=== PATIENT | male | born 1965 | race Caucasian/White ===

== ENCOUNTER 2021-06-24 15:59 | Inpatient (IN) | payer OTHER ==
[2021-06-24] MEDS ORDERED: ASPIRIN 81 MG PO STA (16:22)
[2021-06-24] MEDS ORDERED: IPRATROPIUM-ALBUTEROL 3 ML NEB INHALATION STA ×2 (16:23→18:11)
[2021-06-24] MEDS ORDERED: methylPREDNISolone SOD SUCCI 125 MG/2 ML VIAL IV STA (16:23)
[2021-06-24] MEDS ORDERED: MAGNESIUM SULFATE-D5W PMX 1 GM in DEXTROSE/WATER 1 100ML.BAG IVPB ONE (16:25)
[2021-06-24 16:38] LABS: Basophils # (A) 0.1 k/uL (0-0.2); Basophils % (A) 1 %; Eosinophils # (A) 0.2 k/uL (0-0.7); Eosinophils % (A) 3 %; HCT 52.7 % (39.0-53.0); HGB 17.8 gm/dL (13.0-17.5); Lymphocytes # (A) 2.5 k/uL (1.0-4.8); Lymphocytes % (A) 31 %; MCH 33.6 pg (25.0-35.0); MCHC 33.8 g/dL (31.0-37.0); MCV 99.6 fL (80.0-100.0); Macrocytosis Slight; Mean Platelet Volume 7.2; Monocytes # (A) 0.6 k/uL (0-1.0); Monocytes % (A) 8 %; Neutrophils # (A) 4.6 k/uL (1.3-7.7); Neutrophils % (A) 56 %; Platelet Count 305 k/uL (150-450); RBC 5.29 m/uL (4.30-5.90); RDW 14.2 % (11.5-15.5); WBC 8.2 k/uL (3.8-10.6)
[2021-06-24 16:47] LABS: INR 0.9 (<1.2); Partial Thromboplastin Time 22.7 sec (22.0-30.0); Prothrombin Time 9.7 sec (9.0-12.0)
--- NOTE | 2021-06-24 16:47 | ED ---
General Adult HPI - General Chief complaint: Chest Pain Stated complaint: Chest pain Time Seen by Provider: 06/24/21 16:05 Source: patient, RN notes reviewed, old records reviewed Mode of arrival: ambulatory Limitations: no limitations - History of Present Illness Initial comments: Patient is a 55-year-old male with past medical history remarkable for chronic tobacco use, prior [place], prior history of TIAs who presents emergency Department complaining of chest tightness with radiation to the left shoulder and neck since 8 PM last night. No known palliative or provacative factors. Mildly improved since yesterday. He also describes subjective weakness in the left arm and mild subjective numbness in the left arm. This all started at 8 PM last night. Patient presented to the emergency department at 4 PM the next day (today). Last known well was 8 PM last night. He is describing subjective mild left upper extremity weakness and numbness since 8 PM last night with the chest discomfort. He describes it as a tightness sensation of both sides of his chest. States he does smoke tobacco. He states mild shortness of breath. Denies any history of COPD. Denies any abdominal pain, nausea, vomiting. Denies any urinary complaints. Denies any lightheadedness or difficulty with vision. He is able to ambulate without difficulty. He has no other acute complaints at this time. States he has no residual deficits from prior TIAs. Denies any fevers, chills, sick contacts. Patient presents emergency department for evaluation. - Related Data Home Medications Medication Instructions Recorded Confirmed No Known Home Medications 06/24/21 06/24/21 Allergies Allergy/AdvReac Type Severity Reaction Status Date / Time No Known Allergies Allergy Verified 06/24/21 16:58 Review of Systems ROS Statement: Those systems with pertinent positive or pertinent negative responses have been documented in the HPI. Review of Systems: CONST: Denies fever EYES: Denies blurry vision ENT: Denies nasal congestion C/V: Endorse chest pain RESP: Endorses shortness breath GI: Denies abdominal pain : Denies dysuria SKIN: Denies rash. MSK: Denies joint pain. NEURO: Endorses left upper extremity weakness ROS Other: All systems not noted in ROS Statement are negative. Past Medical History Past Medical History: Cancer, Myocardial Infarction ([place]) Additional Past Medical History / Comment(s): TIA x 3 Past Surgical History: Back Surgery, Joint Replacement, Orthopedic Surgery Smoking Status: Current every day smoker Past Alcohol Use History: Daily Past Drug Use History: Marijuana General Exam - General Exam Comments Initial Comments: General: Appears in no acute distress. HEAD: Normal with no signs of head trauma. EYES: PERRLA, EOMI, conjunctiva normal, no discharge. Pupils are 3 mm and equal bilaterally. ENT: Hearing grossly intact, normal oropharynx. RESPIRATORY: Patient has mildly reduced breath sounds bilaterally with mild end expiratory wheezing in bilateral lung montoya. No tachypnea or increased work of breathing. C/V: Regular rate and rhythm. S1 and S2 auscultated, no edema, peripheral pulses 2+ and intact throughout. peripheral pulses are equal 4 extremities. ABD: Abd is soft, nontender, nondistended EXT: Normal range of motion, no obvious deformity SKIN: No rashes or lesions observed on exposed skin. NEURO: Alert and oriented 4. Cranial nerves II through XII are intact. Cerebellar function is intact as evident by normal finger to nose testing and [id number] testing. NIH stroke scale is 2, 1 for left upper extremity weakness and 1 for left lower extremity mild sensory loss. Last known well was 8 PM last night. Symptoms have remained unchanged since then. Limitations: no limitations Course Vital Signs 06/24/21 06/24/21 06/24/21 16:02 17:31 17:37 Temperature 98.1 F Pulse Rate 102 H 72 73 Respiratory 18 18 18 Rate Blood Pressure 116/75 O2 Sat by Pulse 94 L Oximetry 06/24/21 06/24/21 06/24/21 17:42 19:07 19:25 Temperature Pulse Rate 66 77 75 Respiratory 17 18 18 Rate Blood Pressure 143/79 154/87 O2 Sat by Pulse 95 96 Oximetry Medical Decision Making - Medical Decision Making Based on the patient's presentation and physical exam, I'm concerned for possible COPD exacerbation for his current symptoms versus possible ACS for his chest pain. Patient also has an NIH stroke scale of 2 with left upper extremity findings but last known normal was 8 PM last night which is 20 hours ago. He is outside the TPA window and stroke activation window. However we will obtain CT brain without contrast as well as CTAs of the brain and neck. Patiently connected to continuous cardiac monitoring was here in the department. Basic laboratory studies as well as troponin, EKG, chest x-ray will also be obtained. We'll hold off and given aspirin at this time until the CTs are completed. Patient also appears to have a mild COPD exacerbation and will receive IV solu Medrol, magnesium, as well as DuoNeb treatments. Patient was in agreement this plan. Patient's EKG was negative for acute ischemia.Patient's laboratory studies were remarkable for a negative troponin of 0.012. AST and ALT are minimally elevated. COVID-19 swab was negative. Remainder of his labs are unremarkable. Patient's chest x-ray reveals no acute cardiopulmonary process. Patient's CT head and CT angiogram reveals a possible cortical hypodensity in the left occipital lobe which may be suggestive of an acute infarct. CT angiogram was negative otherwise. On reevaluation, did explain to the patient that it does appear that he may have a possible acute infarct of the brain. However his last known well was last night which is 20 hours ago and there is no acute intervention at this time with a negative CT angiogram. Patient does have resolved weakness and sensory deficits of the left arm at this time. NIH stroke scale at this time is 0. Patient will therefore be provided with a dose of aspirin here in the emergency department 325 mg. Informed her of the results of his negative cardiac workup. He states this chest tightness is improved following treatment of his COPD, however he says end expiratory wheezing and therefore we will provide him with multiple breathing treatments as well as Q six-hour Solu-Medrol injections. Patient was in agreement this plan. Patient be admitted to the hospital. Did speak with neurology and we'll place a consult. They were in agreement this plan. Consult was placed to Dr. Virk. I spoke with the admitting team, Dr. Barcenas who is in agreement with this plan and accepted the patient. Therefore patient was admitted in serious condition to a telemetry bed. - Lab Data Result diagrams: 06/24/21 16:29 06/24/21 16:29 Lab Results 06/24/21 06/24/21 06/24/21 Range/Units 16:29 16:29 16:29 WBC 8.2 (3.8-10.6) k/uL RBC 5.29 (4.30-5.90) m/uL Hgb 17.8 H (13.0-17.5) gm/dL Hct 52.7 (39.0-53.0) % MCV 99.6 (80.0-100.0) fL MCH 33.6 (25.0-35.0) pg MCHC 33.8 (31.0-37.0) g/dL RDW 14.2 (11.5-15.5) % Plt Count 305 (150-450) k/uL MPV 7.2 Neutrophils % 56 % Lymphocytes % 31 % Monocytes % 8 % Eosinophils % 3 % Basophils % 1 % Neutrophils # 4.6 (1.3-7.7) k/uL Lymphocytes # 2.5 (1.0-4.8) k/uL Monocytes # 0.6 (0-1.0) k/uL Eosinophils # 0.2 (0-0.7) k/uL Basophils # 0.1 (0-0.2) k/uL Macrocytosis Slight PT 9.7 (9.0-12.0) sec INR 0.9 (<1.2) APTT 22.7 (22.0-30.0) sec Sodium 139 (137-145) mmol/L Potassium 4.0 (3.5-5.1) mmol/L Chloride 101 (98-107) mmol/L Carbon Dioxide 22 (22-30) mmol/L Anion Gap 16 mmol/L BUN 8 L (9-20) mg/dL Creatinine 0.77 (0.66-1.25) mg/dL Est GFR (CKD-EPI)AfAm >90 (>60 ml/min/1.73 sqM) Est GFR (CKD-EPI)NonAf >90 (>60 ml/min/1.73 sqM) Glucose 86 (74-99) mg/dL Calcium 9.2 (8.4-10.2) mg/dL Magnesium 1.9 (1.6-2.3) mg/dL Total Bilirubin 0.9 (0.2-1.3) mg/dL AST 74 H (17-59) U/L ALT 55 H (4-49) U/L Alkaline Phosphatase 79 (38-126) U/L Troponin I (0.000-0.034) ng/mL Total Protein 6.9 (6.3-8.2) g/dL Albumin 4.3 (3.5-5.0) g/dL 06/24/21 Range/Units 16:29 WBC (3.8-10.6) k/uL RBC (4.30-5.90) m/uL Hgb (13.0-17.5) gm/dL Hct (39.0-53.0) % MCV (80.0-100.0) fL MCH (25.0-35.0) pg MCHC (31.0-37.0) g/dL RDW (11.5-15.5) % Plt Count (150-450) k/uL MPV Neutrophils % % Lymphocytes % % Monocytes % % Eosinophils % % Basophils % % Neutrophils # (1.3-7.7) k/uL Lymphocytes # (1.0-4.8) k/uL Monocytes # (0-1.0) k/uL Eosinophils # (0-0.7) k/uL Basophils # (0-0.2) k/uL Macrocytosis PT (9.0-12.0) sec INR (<1.2) APTT (22.0-30.0) sec Sodium (137-145) mmol/L Potassium (3.5-5.1) mmol/L Chloride (98-107) mmol/L Carbon Dioxide (22-30) mmol/L Anion Gap mmol/L BUN (9-20) mg/dL Creatinine (0.66-1.25) mg/dL Est GFR (CKD-EPI)AfAm (>60 ml/min/1.73 sqM) Est GFR (CKD-EPI)NonAf (>60 ml/min/1.73 sqM) Glucose (74-99) mg/dL Calcium (8.4-10.2) mg/dL Magnesium (1.6-2.3) mg/dL Total Bilirubin (0.2-1.3) mg/dL AST (17-59) U/L ALT (4-49) U/L Alkaline Phosphatase (38-126) U/L Troponin I <0.012 (0.000-0.034) ng/mL Total Protein (6.3-8.2) g/dL Albumin (3.5-5.0) g/dL - EKG Data -: EKG Interpreted by Me EKG Comments: 12-lead Electrocardiogram Interpretation Note EKG was reviewed and interpreted by myself. 12-lead ECG performed at 1618 is interpreted by me as revealing normal sinus rhythm at a rate of 97 beats per minute. Kake is normal. MT interval is 144 ms, QRS duration is 86 ms, QTc is 457 ms.. There were no ST or T wave abnormalities to suggest myocardial ischemia or injury. R wave progression across the precordium was satisfactory. By my interpretation this EKG is non-diagnostic for acute ischemia. Disposition Clinical Impression: TIA (transient ischemic attack), COPD exacerbation, Tobacco use, Chest pain of unknown etiology Disposition: ADMITTED IP TO THIS HOSP Condition: Serious
[2021-06-24 16:52] LABS: ALT 55 U/L (4-49); AST 74 U/L (17-59); African American GFR (CKD) >90 (>60 ml/min/1.73 sqM); Albumin 4.3 g/dL (3.5-5.0); Alkaline Phosphatase 79 U/L (38-126); Anion Gap 16 mmol/L; Blood Urea Nitrogen 8 mg/dL (9-20); Calcium 9.2 mg/dL (8.4-10.2); Carbon Dioxide 22 mmol/L (22-30); Chloride 101 mmol/L (98-107); Glucose 86 mg/dL (74-99); Magnesium 1.9 mg/dL (1.6-2.3); Non-African American GFR(CKD) >90 (>60 ml/min/1.73 sqM); Sodium 139 mmol/L (137-145); Total Bilirubin 0.9 mg/dL (0.2-1.3); Total Protein 6.9 g/dL (6.3-8.2)
--- NOTE | 2021-06-24 17:56 | CT ---
EXAMINATION TYPE: CT brain wo con DATE OF EXAM: 06/24/2021 COMPARISON: HISTORY: cva CT DLP: 1118.8 mGycm Automated exposure control for dose reduction was used. Images of the brain obtained without contrast. There is some mild cortical hypodensity in the left occipital lobe in the medial aspect that could re late to an acute infarct. There is no mass effect nor midline shift. There is no sign of intracranial hemorrhage. Calvarium is intact. Skull base is intact. There is normal aeration of the mastoid sinus es. IMPRESSION: Hypodensity left occipital lobe could BE an acute infarct.
--- NOTE | 2021-06-24 17:57 | XR ---
EXAMINATION TYPE: XR chest 2V DATE OF EXAM: 06/24/2021 COMPARISON: NONE HISTORY: Weakness Wrist pain TECHNIQUE: 2 views FINDINGS: Heart and mediastinum are normal. Lungs are clear. Diaphragm is normal. Bony thorax appears intact. There are chest leads. IMPRESSION: Normal chest.
--- NOTE | 2021-06-24 18:07 | CT ---
EXAMINATION TYPE: CT angio head neck DATE OF EXAM: 06/24/2021 COMPARISON: None HISTORY: cva CT DLP: 406.4 mGycm Automated exposure control for dose reduction was used. CONTRAST: Performed with IV Contrast, patient injected with 65cc mL of Isovue 370. Images obtained from the aortic arch to the vertex of the brain with IV contrast. There are 3-D post processed images. There is normal branching pattern of the great vessels on the aortic arch. There is arterial flow in both subclavian arteries. There is arterial flow in the common internal and external carotid arteries bilaterally. There is wide patency of the carotid artery bifurcations. There is arterial flow in both vertebral arteries. There is arterial flow in the vertebrobasilar antonia ry system. There is no evidence of carotid or vertebral artery aneurysm or dissection. There is arterial flow in the anterior middle and posterior cerebral arteries. There is no sign of in tracranial aneurysm or neovascularity. There is no mass effect. I see no evidence of hemodynamic sten osis. There is normal enhancement of the venous sinuses. There is some cortical hypodensity left occi pital lobe measuring approximately 3 x 1.5 cm. IMPRESSION: Negative CT angiogram of the brain. Negative CT angiogram of the neck. Cortical hypodensity left occipital lobe without mass effect is suggestive of an acute infarct.
[2021-06-24] MEDS ORDERED: ASPIRIN 325 MG TAB PO STA (18:17)
[2021-06-24] MEDS: IPRATROPIUM-ALBUTEROL 3 ML NEB INHALATION SCH (22:25)
[2021-06-24] MEDS: methylPREDNISolone SOD SUCCI 40 MG/ML 1 ML VIAL IV SCH (23:58)
[2021-06-25] MEDS: IPRATROPIUM-ALBUTEROL 3 ML NEB INHALATION SCH ×6 (00:17→19:11)
[2021-06-25 06:19] LABS: Glucose,Whole Blood 160 mg/dL (75-99)
[2021-06-25] MEDS: methylPREDNISolone SOD SUCCI 40 MG/ML 1 ML VIAL IV SCH ×2 (06:41→11:30)
[2021-06-25] MEDS ORDERED: DOXYCYCLINE 100 MG CAP PO SCH (11:15)
[2021-06-25] MEDS: SODIUM CHLORIDE 0.9% 1,000 ML IV SCH ×3 (11:29→22:02)
[2021-06-25] MEDS: ATORVASTATIN 40 MG TAB PO SCH (11:30)
[2021-06-25 11:56] LABS: Glucose,Whole Blood 194 mg/dL (75-99)
[2021-06-25] MEDS ORDERED: INSULIN ASPART (NovoLOG) 100 UNIT/ML VIAL SQ SCH (12:30)
--- NOTE | 2021-06-25 14:32 | P.CNPUL ---
History of Present Illness Consult date: 06/25/21 Requesting physician: Ej Barcenas Reason for consult: COPD Chief complaint: Left arm weakness, and blurred vision. History of present illness: This is a 55-year-old white male with history of COPD, 15-ufyn-nryr smoking history, however the patient had no active pulmonary symptoms to suggest active COPD. He presented to the emergency room yesterday with an onset of left arm weakness, and blinking of the left eye, blurred vision in the right eye, this happened while he was working in the barn and there was extreme heat in the barn itself. Patient was evaluated in the ER, and he was noted to have abnormal CT of the brain. Raised the possibility of hypodensity in the left occipital lobe possible acute infarct. CT angiography of the head and neck showed cortical hypodensity in the left occipital lobe without mass effect. Again it is suggestive of acute infarct. No other significant findings noted on the CT angiogram of the head and neck. Considering the patient's history of COPD, I was asked to see him on consultation. Patient has no active pulmonary symptoms whatsoever. No cough no wheezing no shortness of breath no chest pain no fever no chills no hemoptysis. Patient is not on any bronchodilators or inhalers at home. Review of Systems Constitutional: Negative HEENT: Negative Pulmonary: Negative Cardiac: Negative GI: Negative Genitourinary: Negative Musculoskeletal: Left arm weakness which has resolved since the patient was admitted to the hospital. Neurologic: As noted in HPI. Psychiatric: Negative Hematologic: Negative Endocrine: Negative Skin: Negative Past Medical History Past Medical History: Cancer, Myocardial Infarction ([place]) Additional Past Medical History / Comment(s): TIA x 3 Last Myocardial Infarction Date:: 2012 History of Any Multi-Drug Resistant Organisms: None Reported Past Surgical History: Back Surgery, Joint Replacement, Orthopedic Surgery Past Anesthesia/Blood Transfusion Reactions: No Reported Reaction Smoking Status: Current every day smoker Past Alcohol Use History: Daily Past Drug Use History: Marijuana - Past Family History Mother Family Medical History: Cancer Father Family Medical History: Congestive Heart Failure (CHF) Medications and Allergies Home Medications Medication Instructions Recorded Confirmed Type No Known Home Medications 06/24/21 06/24/21 History Allergies Allergy/AdvReac Type Severity Reaction Status Date / Time No Known Allergies Allergy Verified 06/24/21 16:58 Physical Exam Vitals: Vital Signs Temp Pulse Pulse Resp BP BP Pulse Ox 06/25/21 11:34 98 F 67 18 138/80 95 06/25/21 11:14 70 06/25/21 11:03 67 06/25/21 07:39 98 F 71 18 145/77 96 06/25/21 03:55 85 06/25/21 03:45 92 06/25/21 03:41 97.8 F 64 18 145/81 96 06/25/21 00:27 71 06/25/21 00:17 74 06/25/21 00:00 97 20 162/81 96 06/24/21 20:44 98.0 F 81 20 93 L 06/24/21 19:25 75 18 06/24/21 19:07 77 18 154/87 96 06/24/21 17:42 66 17 143/79 95 06/24/21 17:37 73 18 06/24/21 17:31 72 18 06/24/21 16:02 98.1 F 102 H 18 116/75 94 L Intake and Output 06/24/21 06/25/21 06/25/21 22:59 06:59 14:59 Intake Total 490 Balance 490 Intake: IV 10 0.9 10 Oral 480 Other: # Voids 1 Weight 75.1 kg 75.1 kg Physical Exam: Revealed a 55-year-old white male in no distress. Very pleasant. Head: Atraumatic, normocephalic. HEENT:[Neck is supple.] [No neck masses.] [No thyromegaly.] [No JVD.] Chest: [Clear throughout, no crackles, no rhonchi, no wheezes.] Cardiac Exam: [Normal S1 and S2, no S3 gallop, no murmur.] Abdomen: [Soft, nontender, no megaly, no rebound, no guarding, normal bowel sounds.] Extremities: [No clubbing, no edema, no cyanosis.] Neurological Exam: [No focal neurologic deficit.] Alert oriented 3. Psychiatric: Normal mood affect and normal mental status examination. Skin: No rashes. Results - Laboratory Findings CBC and BMP: 06/24/21 16:29 06/24/21 16:29 PT/INR, D-dimer PT 9.7 sec (9.0-12.0) 06/24/21 16:29 INR 0.9 (<1.2) 06/24/21 16:29 Abnormal lab findings: Abnormal Labs 06/24/21 06/24/21 06/25/21 16:29 16:29 06:17 Hgb 17.8 H BUN 8 L POC Glucose (mg/dL) 160 H AST 74 H ALT 55 H 06/25/21 11:54 Hgb BUN POC Glucose (mg/dL) 194 H AST ALT - Diagnostic Findings Chest x-ray: image reviewed (As noted in HPI.) Assessment and Plan Assessment: Impression: Acute CVA/TIA, being addressed by neurology on the case. Tobacco dependence syndrome, no clear-cut symptoms of COPD exacerbation. Patient has no active pulmonary symptoms whatsoever during my evaluation. History of previous CVA. Recommendation: Discontinue methylprednisolone. Discontinue doxycycline. Use updrafts as needed. Counseled regarding smoking cessation. Cleared for discharge once the patient has been cleared by neurology on the case. We'll follow on when necessary basis. Time with Patient: Greater than 30
--- NOTE | 2021-06-25 18:13 | P.HPIM ---
History of Present Illness H&P Date: 06/25/21 Chief Complaint: Chest pain 55-year-old male with past medical history remarkable for chronic tobacco use, prior [place], prior history of TIAs who presents emergency Department complaining of chest tightness with radiation to the left shoulder and neck since 8 PM last night. No known palliative or provacative factors. Mildly improved since yesterday. He also describes subjective weakness in the left arm and mild subjective numbness in the left arm. This all started at 8 PM last night. Patient presented to the emergency department at 4 PM the next day (today). Last known well was 8 PM last night. He is describing subjective mild left upper extremity weakness and numbness since 8 PM last night with the chest discomfort. He describes it as a tightness sensation of both sides of his chest. States he does smoke tobacco. He states mild shortness of breath. Denies any history of COPD. Denies any abdominal pain, nausea, vomiting. Denies any urinary complaints. Denies any lightheadedness or difficulty with vision. He is able to ambulate without difficulty. He has no other acute complaints at this time. States he has no residual deficits from prior TIAs. Denies any fevers, chills, sick contacts. Patient presents emergency department for evaluation. Review of Systems REVIEW OF SYSTEMS: CONSTITUTIONAL: No fever, no malaise, no fatigue. HEENT: No recent visual problems or hearing problems. Denied any sore throat. CARDIOVASCULAR: No chest pain, orthopnea, PND, no palpitations, no syncope. PULMONARY: No shortness of breath, no cough, no hemoptysis. GASTROINTESTINAL: No diarrhea, no nausea, no vomiting, no abdominal pain. NEUROLOGICAL: No headaches, no weakness, no numbness. HEMATOLOGICAL: Denies any bleeding or petechiae. GENITOURINARY: Denies any burning micturition, frequency, or urgency. MUSCULOSKELETAL/RHEUMATOLOGICAL: Denies any joint pain, swelling, or any muscle pain. ENDOCRINE: Denies any polyuria or polydipsia. The rest of the 14-point review of systems is negative. Past Medical History Past Medical History: Cancer, Myocardial Infarction ([place]) Additional Past Medical History / Comment(s): TIA x 3 Last Myocardial Infarction Date:: 2012 History of Any Multi-Drug Resistant Organisms: None Reported Past Surgical History: Back Surgery, Joint Replacement, Orthopedic Surgery Past Anesthesia/Blood Transfusion Reactions: No Reported Reaction Smoking Status: Current every day smoker Past Alcohol Use History: Daily Past Drug Use History: Marijuana - Past Family History Mother Family Medical History: Cancer Father Family Medical History: Congestive Heart Failure (CHF) Medications and Allergies Home Medications Medication Instructions Recorded Confirmed Type No Known Home Medications 06/24/21 06/24/21 History Allergies Allergy/AdvReac Type Severity Reaction Status Date / Time No Known Allergies Allergy Verified 06/24/21 16:58 Physical Exam Vitals: Vital Signs Temp Pulse Pulse Resp BP BP Pulse Ox 06/25/21 07:39 98 F 71 18 145/77 96 06/25/21 03:55 85 06/25/21 03:45 92 06/25/21 03:41 97.8 F 64 18 145/81 96 06/25/21 00:27 71 06/25/21 00:17 74 06/25/21 00:00 97 20 162/81 96 06/24/21 20:44 98.0 F 81 20 93 L 06/24/21 19:25 75 18 06/24/21 19:07 77 18 154/87 96 06/24/21 17:42 66 17 143/79 95 06/24/21 17:37 73 18 06/24/21 17:31 72 18 06/24/21 16:02 98.1 F 102 H 18 116/75 94 L Intake and Output 06/24/21 06/25/21 06/25/21 22:59 06:59 14:59 Intake Total 240 Balance 240 Intake: Oral 240 Other: # Voids 1 Weight 75.1 kg 75.1 kg Physical Exam: Revealed a 55-year-old white male in no distress. Very pleasant. Head: Atraumatic, normocephalic. HEENT:[Neck is supple.] [No neck masses.] [No thyromegaly.] [No JVD.] Chest: [Clear throughout, no crackles, no rhonchi, no wheezes.] Cardiac Exam: [Normal S1 and S2, no S3 gallop, no murmur.] Abdomen: [Soft, nontender, no megaly, no rebound, no guarding, normal bowel sounds.] Extremities: [No clubbing, no edema, no cyanosis.] Neurological Exam: [No focal neurologic deficit.] Alert oriented 3. Psychiatric: Normal mood affect and normal mental status examination. Skin: No rashes. Results CBC & Chem 7: 06/24/21 16:29 06/24/21 16:29 Labs: Abnormal Lab Results - Last 24 Hours (Table) 06/24/21 06/24/21 06/25/21 Range/Units 16:29 16:29 06:17 Hgb 17.8 H (13.0-17.5) gm/dL BUN 8 L (9-20) mg/dL POC Glucose (mg/dL) 160 H (75-99) mg/dL AST 74 H (17-59) U/L ALT 55 H (4-49) U/L Thrombosis Risk Factor Assmnt - Choose All That Apply Each Factor Represents 1 point: Acute NM, Age 41-60 years Other Risk Factors: No Other congenital or acquired thrombophilia - If yes, enter type in comment: No Thrombosis Risk Factor Assessment Total Risk Factor Score: 2 Thrombosis Risk Factor Assessment Level: Low Risk Assessment and Plan Assessment: 1. Acute left occipital infarct - CT of the head reveals left occipital infarct; we will start patient on aspirin and high-dose statin therapy in form of Lipitor 40 mg by mouth daily at bedtime; order 2-D echo; CTA head and neck was unremarkable - Check HbA1c, vitamin B12, TSH and lipid profile; we will plan to keep blood glucose less than 180 - Permissive hypertension; treat only if blood pressure is greater than 220/120; start patient on IV fluids in form of normal saline at rate of 1 30 mL an hour - Neurology consulted and recommendations are pending - Consult PT/OT for evaluation and recommendations on discharge planning 2. Chest pain rule out acute coronary syndrome; continue with aspirin and statin therapy; order 2-D echo; consult cardiology for further recommendations 3. Dyspnea possible COPD exacerbation; patient has no diagnosis of COPD; does have long-standing history of cigarette smoking; patient is currently on Solu- Medrol 40 mg IV every 8 hours with DuoNeb nebulizer treatments; patient does not have any clear-cut evidence of COPD; we will consult pulmonary for further re commendations 4. Chronic tobacco use; counseling done on need for smoking cessation DVT prophylaxis; SCDs only due to acute CVA CODE STATUS; full code
[2021-06-25 18:30] LABS: Chol/HDL Ratio 2.26
--- NOTE | 2021-06-25 18:58 | P.CNNES ---
History of Present Illness Consult date: 06/25/21 Reason for Consult: TIA History of Present Illness: The patient is a 55-year-old male who is seen in neurologic consultation on June 25, 2021, via teleneurology. History is obtained from the patient as well as the chart. There appears to be some variation in the patient's history. Patient states that a day prior to his admission to the hospital, he was working in the barn and became very hot. He says he was very hot and overheated. He then developed a headache. Continued to feel hot and overheated and subsequently developed numbness of his left forearm and hand. The patient denies weakness. Patient also denies visual loss. He does report feeling dizzy. He denied difficulty with speech and swallowing. Patient states that his symptoms began approximately 8 PM. He went home and his symptoms lasted all night long. He came into the emergency department day after onset of his symptoms, at approximate 4 PM. The patient reports having similar symptoms like this in the past. During my questioning, the patient denies chest pain and shortness of breath. Review of the emergency department note, the patient reportedly presented with chest tightness, radiating to his neck and left arm with associated shortness of breath. The patient himself feels that he was having the beginnings of a heat stroke. He says he has had them in the past. Past Medical History Past Medical History: Cancer, Myocardial Infarction ([place]) Additional Past Medical History / Comment(s): TIA x 3 Last Myocardial Infarction Date:: 2012 History of Any Multi-Drug Resistant Organisms: None Reported Past Surgical History: Back Surgery, Joint Replacement, Orthopedic Surgery Past Anesthesia/Blood Transfusion Reactions: No Reported Reaction Smoking Status: Current every day smoker Past Alcohol Use History: Daily Past Drug Use History: Marijuana - Past Family History Mother Family Medical History: Cancer Father Family Medical History: Congestive Heart Failure (CHF) Medications and Allergies Home Medications Medication Instructions Recorded Confirmed Type No Known Home Medications 06/24/21 06/24/21 History Allergies Allergy/AdvReac Type Severity Reaction Status Date / Time No Known Allergies Allergy Verified 06/24/21 16:58 Physical Examination - Vital Signs Vital Signs: Vital Signs Temp Pulse Pulse Resp BP BP Pulse Ox 06/25/21 11:34 98 F 67 18 138/80 95 06/25/21 11:14 70 06/25/21 11:03 67 06/25/21 07:39 98 F 71 18 145/77 96 06/25/21 03:55 85 06/25/21 03:45 92 06/25/21 03:41 97.8 F 64 18 145/81 96 06/25/21 00:27 71 06/25/21 00:17 74 06/25/21 00:00 97 20 162/81 96 06/24/21 20:44 98.0 F 81 20 93 L 06/24/21 19:25 75 18 06/24/21 19:07 77 18 154/87 96 06/24/21 17:42 66 17 143/79 95 06/24/21 17:37 73 18 06/24/21 17:31 72 18 06/24/21 16:02 98.1 F 102 H 18 116/75 94 L Intake and Output 06/24/21 06/25/21 06/25/21 22:59 06:59 14:59 Intake Total 250 Balance 250 Intake: IV 10 0.9 10 Oral 240 Other: # Voids 1 Weight 75.1 kg 75.1 kg Gen.: The patient is reclining in the bed. He is well-nourished, well-developed and in no acute distress. He appears older than his stated age. HEENT: Head is atraumatic, normocephalic. Fundus not visualized. There is no scleral icterus. Mucous membranes are moist. Neck: Supple without carotid bruits Heart: Regular rate and rhythm Extremities: Without edema Neurological examination Mental status: The patient is awake, alert and oriented 3. His speech is clear. There is no dysarthria or aphasia. Cranial nerves: Pupils are equal at 3 mm and reactive. Visual montoya are full to confrontation. Extraocular movements are intact. There is no nystagmus. Facial sensation is intact. There is no facial asymmetry. Hearing is grossly intact. Uvula and palate are midline. Shoulder shrug is symmetric. Tongue protrudes midline. Motor: Strength is 5/5 throughout. Coordination: Finger to nose and rapid alternating movements are intact. Deep tendon reflexes: 2+/4+ at the right biceps and bilateral patellar. Left biceps reflex 1+/4+. Tinel's sign is absent at the right wrist. Sensation: Grossly intact to light touch. There is no extinction with double simultaneous stimulation. Results - Laboratory Findings CBC and BMP: 06/24/21 16:29 06/24/21 16:29 Abnormal Lab Findings: Abnormal Labs 06/24/21 06/24/21 06/25/21 16:29 16:29 06:17 Hgb 17.8 H BUN 8 L POC Glucose (mg/dL) 160 H AST 74 H ALT 55 H 06/25/21 11:54 Hgb BUN POC Glucose (mg/dL) 194 H AST ALT Assessment and Plan Assessment: 1. Possible TIA in a patient with previous strokes and stroke risk factors. The location of the patient's symptoms-left forearm and handare unusual for transient ischemic attack. Also to be considered are symptoms of dehydration as patient does appear to be dehydrated, per laboratory evaluation 2. Occipital ischemic infarct per CT scan of brain-the patient has no visual symptoms consistent with this. CT scan is unable to tell us the actual age of the infarct. 3. Reported history of TIAs 4. Reported history of myocardial infarction 5. COPD 6. Tobacco abuse Plan: 1. No further imaging is necessary at this point in time, may consider MRI of the brain as outpatient to further evaluate occipital infarct 2. The patient should be started on aspirin 81 mg daily for stroke prevention 3. Tobacco cessation was discussed with the patient. He was advised that tobacco increases his risk of heart disease and stroke 4. Patient was advised to eat a heart healthy diet/Mediterranean 5. Aerobic exercise was recommended for further stroke prevention 6. Agree with initiation of Lipitor for further stroke prevention 7. Consider outpatient follow-up with neurology Time with Patient: Greater than 30 (spent 40 minutes with the patient to via teleneurology)
[2021-06-25 20:33] LABS: Hemoglobin A1C 5.4 % (4.0-6.0)
[2021-06-25 23:34] VITALS: RESP 16
[2021-06-26] MEDS: IPRATROPIUM-ALBUTEROL 3 ML NEB INHALATION SCH ×3 (00:01→08:31)
[2021-06-26 07:54] VITALS: BP 133/82; PULSE 65; TEMP 98.1
[2021-06-26] MEDS: ATORVASTATIN 40 MG TAB PO SCH (07:56)
[2021-06-26 08:46] LABS: Basophils % (A) 0 %; Eosinophils % (A) 0 %; HCT 47.9 % (39.0-53.0); HGB 16.3 gm/dL (13.0-17.5); Lymphocytes # (A) 1.3 k/uL (1.0-4.8); Lymphocytes % (A) 13 %; MCH 34.3 pg (25.0-35.0); MCHC 33.9 g/dL (31.0-37.0); Macrocytosis Slight; Mean Platelet Volume 8.2; Monocytes # (A) 0.6 k/uL (0-1.0); Monocytes % (A) 6 %; Neutrophils # (A) 8.3 k/uL (1.3-7.7); Neutrophils % (A) 80 %; Platelet Count 216 k/uL (150-450); RBC 4.74 m/uL (4.30-5.90); RDW 13.6 % (11.5-15.5); WBC 10.3 k/uL (3.8-10.6)
[2021-06-26 08:53] LABS: African American GFR (CKD) >90 (>60 ml/min/1.73 sqM); Anion Gap 6 mmol/L; Blood Urea Nitrogen 14 mg/dL (9-20); Calcium 9.2 mg/dL (8.4-10.2); Carbon Dioxide 26 mmol/L (22-30); Chloride 102 mmol/L (98-107); Glucose 129 mg/dL (74-99); Non-African American GFR(CKD) >90 (>60 ml/min/1.73 sqM); Potassium 4.2 mmol/L (3.5-5.1); Sodium 134 mmol/L (137-145)
[2021-06-26] MEDS ORDERED: ASPIRIN 81 MG PO SCH (09:00)
[2021-06-26] MEDS ORDERED: NITROGLYCERIN SL TABS 0.4 MG TAB SUBLINGUAL PRN (10:27)
[2021-06-26] MEDS ORDERED: METOPROLOL TARTRATE 12.5 MG TAB PO SCH (10:30)
[2021-06-26] MEDS: SODIUM CHLORIDE 0.9% 1,000 ML IV SCH (11:37)
--- NOTE | 2021-06-26 13:45 | P.CRDCN ---
History of Present Illness History of present illness: HISTORY OF PRESENT ILLNESS: This is a 55-year-old male male with a past medical history significant for nicotine dependence and coronary artery disease with previous stenting in [place]. 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 Patient examined at the bedside. Patient states he recently moved to [place] and was previously living in [place]. He reports having a stent placed 7 or 8 years ago. Patient is unclear of the exact details. He states he has had no issues since his stent was placed. He believes he had a stress test completed a few years ago but nothing recently. Patient reports he was having a lot of jaw pain when he required his stents. Patient states he was working on the barn and he began to feel really hot. He states he felt short of breath and stated "I felt like my head was going to explode". He also reports feeling short of breath. Patient states he had chest tightness during this time to which he attributes to his labored breathing. He currently denies chest pain or pressure. EKG reveals sinus mechanism Chest xray negative for acute process Laboratory data: WBC 10.3. Hemoglobin 16.3. Platelet count 216. Sodium 134. Potassium 4.2. BUN 14. Creatinine 0.67. Troponin negative 2. Current home cardiac medications: None REVIEW OF SYSTEMS: At the time of my exam: CONSTITUTIONAL: Denies fever or chills. HEENT: Denies blurred vision, vision changes, or eye pain. Denies hemoptysis CARDIOVASCULAR: Denies chest pain. Denies orthopnea. Denies PND. Denies palpitations RESPIRATORY: Denies shortness of breath. GASTROINTESTINAL: Denies abdominal pain. Denies nausea or vomiting. HEMATOLOGIC: Denies bleeding disorders. GENITOURINARY: Denies any blood in urine. SKIN: Denies pruitis. Denies rash. PHYSICAL EXAM: VITAL SIGNS: Reviewed. GENERAL: Well-developed in no acute distress. HEENT: Head is normocephalic. Pupils are equal, round. Sclerae anicteric. Mucous membranes of the mouth are moist. Neck supple. No JVD or thyromegaly LUNGS: Respirations even and unlabored. Lungs essentially clear to auscultation bilaterally. HEART: Regular rate and rhythm. S1 and S2 heard. ABDOMEN: Soft. Nondistended. Nontender. EXTREMITIES: Normal range of motion. No clubbing or cyanosis. Peripheral pu lses intact. No lower extremity edema NEUROLOGIC: Awake and alert. Oriented x 3. ASSESSMENT: Acute CVA/TIA Chest pain, troponins negative 2 History of coronary artery disease with previous stenting in [place], per patient Nicotine dependence PLAN: Obtain 2-D echo to assess structure and function Add metoprolol to patient's medication regimen Continue workup per neurology Possible KELVIN and/or stress test after neurology workup Nurse practitioner note has been reviewed by physician. Signing provider agrees with the documented findings, assessment, and plan of care. Past Medical History Past Medical History: Cancer, Myocardial Infarction ([place]) Additional Past Medical History / Comment(s): TIA x 3 Last Myocardial Infarction Date:: 2012 History of Any Multi-Drug Resistant Organisms: None Reported Past Surgical History: Back Surgery, Joint Replacement, Orthopedic Surgery Past Anesthesia/Blood Transfusion Reactions: No Reported Reaction Smoking Status: Current every day smoker Past Alcohol Use History: Daily Past Drug Use History: Marijuana - Past Family History Mother Family Medical History: Cancer Father Family Medical History: Congestive Heart Failure (CHF) Medications and Allergies Home Medications Medication Instructions Recorded Confirmed Type No Known Home Medications 06/24/21 06/24/21 History Allergies Allergy/AdvReac Type Severity Reaction Status Date / Time No Known Allergies Allergy Verified 06/24/21 16:58 Physical Exam Vitals: Vital Signs Temp Pulse Pulse Resp BP Pulse Ox 06/26/21 07:53 98.1 F 65 16 133/82 96 06/26/21 03:36 98.0 F 60 16 129/77 97 06/25/21 23:31 97.9 F 65 16 136/77 96 06/25/21 20:00 98.4 F 65 18 137/78 95 06/25/21 16:06 98.6 F 75 16 131/78 96 06/25/21 11:34 98 F 67 18 138/80 95 06/25/21 11:14 70 06/25/21 11:03 67 Intake and Output 06/25/21 06/26/21 06/26/21 22:59 06:59 14:59 Intake Total 200 240 Balance 200 240 Intake: Oral 200 240 Other: # Voids 3 1 Weight 75 kg Results 06/26/21 07:47 06/26/21 07:47 Lipids 06/24/21 Range/Units 16:29 Triglycerides 80.0 (0.0-149.0) mg/dL Cholesterol 154 (0-200) mg/dL HDL Cholesterol 68.0 H (40.0-60.0) mg/dL Cholesterol/HDL Ratio 2.26 CBC 06/26/21 Range/Units 07:47 WBC 10.3 (3.8-10.6) k/uL RBC 4.74 (4.30-5.90) m/uL Hgb 16.3 (13.0-17.5) gm/dL Hct 47.9 (39.0-53.0) % Plt Count 216 (150-450) k/uL Comprehensive Metabolic Panel 06/26/21 Range/Units 07:47 Sodium 134 L (137-145) mmol/L Potassium 4.2 (3.5-5.1) mmol/L Chloride 102 (98-107) mmol/L Carbon Dioxide 26 (22-30) mmol/L BUN 14 (9-20) mg/dL Creatinine 0.67 (0.66-1.25) mg/dL Glucose 129 H (74-99) mg/dL Calcium 9.2 (8.4-10.2) mg/dL Current Medications Generic Name Dose Route Start Last Admin Trade Name Freq PRN Reason Stop Dose Admin Albuterol/Ipratropium 3 ml 06/24/21 20:00 06/26/21 08:31 Ipratropium-Albuterol 3 Ml Neb INHALATION Not Given Q4HR ROSA Aspirin 81 mg 06/26/21 09:00 06/26/21 07:56 Aspirin 81 Mg PO 81 mg DAILY ROSA Administration Atorvastatin Calcium 40 mg 06/25/21 11:15 06/26/21 07:56 Atorvastatin 40 Mg Tab PO 40 mg DAILY ROSA Administration Sodium Chloride 1,000 mls @ 130 mls/hr 06/25/21 11:30 06/25/21 22:02 Saline 0.9% IV Not Given .[id number] ROSA Intake and Output 06/25/21 06/26/21 06/26/21 22:59 06:59 14:59 Intake Total 200 240 Balance 200 240 Intake: Oral 200 240 Other: # Voids 3 1 Weight 75 kg 06/26/21 07:47 06/26/21 07:47
== END 2021-06-26 11:32 | disposition left against medical advice (07) | DRG 65 ==
LOC: EC 15:59 → 3SCARD 18:28
PROVIDERS: ADMIT Internal Medicine; ATTEND Internal Medicine
DX: I63.9 Cerebral infarction, unspecified (principal); J44.1 Chronic obstructive pulmonary disease with (acute) exacerbation; F17.200 Nicotine dependence, unspecified, uncomplicated; I10 Essential (primary) hypertension; I25.10 Atherosclerotic heart disease of native coronary artery without angina pectoris; I25.2 Old myocardial infarction; R29.702 NIHSS score 2; Z20.822 Contact with and (suspected) exposure to COVID-19; Z82.49 Family history of ischemic heart disease and other diseases of the circulatory system; Z86.73 Personal history of transient ischemic attack (TIA), and cerebral infarction without residual deficits; Z95.5 Presence of coronary angioplasty implant and graft
CPT/HCPCS: 36415; 70450; 70496; 70498; 71046; 80048; 80053; 80061; 82607; 83036; 83735; 84443; 84484; 85025; 85610; 85730; 87635; 93005; 93306; 94640; 96365; 96375; 99285

== ENCOUNTER 2021-07-08 17:55 | Inpatient (IN) | payer OTHER ==
--- NOTE | 2021-07-08 18:22 | ED ---
General Adult HPI - General Chief complaint: Dizziness Stated complaint: Stroke Symptoms Time Seen by Provider: 07/08/21 18:12 Source: patient, EMS, RN notes reviewed Mode of arrival: EMS Limitations: no limitations - History of Present Illness Initial comments: Patient is a pleasant 55-year-old male presenting to the emergency department with concern with dizziness. Patient states he has history of similar symptoms around 3 times previously associated with TIA. Patient is unclear of any specific weakness. Patient does complain of left-sided headache. Onset of symptoms was fairly sudden sometime around 4:30. - Related Data Home Medications Medication Instructions Recorded Confirmed No Known Home Medications 06/24/21 06/24/21 Allergies Allergy/AdvReac Type Severity Reaction Status Date / Time No Known Allergies Allergy Verified 06/24/21 16:58 Review of Systems ROS Statement: Those systems with pertinent positive or pertinent negative responses have been documented in the HPI. ROS Other: All systems not noted in ROS Statement are negative. Constitutional: Denies: fever Eyes: Denies: eye pain ENT: Denies: ear pain Respiratory: Denies: cough Cardiovascular: Denies: chest pain Endocrine: Denies: fatigue Gastrointestinal: Denies: abdominal pain Genitourinary: Denies: dysuria Musculoskeletal: Denies: back pain Skin: Denies: rash Neurological: Reports: as per HPI, headache, vertigo Past Medical History Past Medical History: Cancer, Myocardial Infarction ([place]) Additional Past Medical History / Comment(s): TIA x 3 Last Myocardial Infarction Date:: 2012 History of Any Multi-Drug Resistant Organisms: None Reported Past Surgical History: Back Surgery, Joint Replacement, Orthopedic Surgery Past Anesthesia/Blood Transfusion Reactions: No Reported Reaction Past Psychological History: No Psychological Hx Reported Smoking Status: Current every day smoker Past Alcohol Use History: Daily Past Drug Use History: Marijuana - Past Family History Mother Family Medical History: Cancer Father Family Medical History: Congestive Heart Failure (CHF) General Exam Limitations: no limitations General appearance: alert, in no apparent distress Head exam: Present: normocephalic Eye exam: Present: normal appearance, PERRL, EOMI ENT exam: Present: normal oropharynx Neck exam: Present: normal inspection Respiratory exam: Present: normal lung sounds bilaterally Cardiovascular Exam: Present: regular rate, normal rhythm GI/Abdominal exam: Present: soft. Absent: tenderness Extremities exam: Present: normal inspection Neurological exam: Present: alert, CN II-XII intact (Except for mild right-sided facial droop) Expanded Neurological exam: Present: protecting the airway, other (Right-sided facial droop) Speech: Present: fluid speech Cranial nerves: EOM's Intact: Normal, Facial Sensation: Normal Cerebellar function: Finger to Nose: Abnormal Left Sensory exam: Upper Extremity Light Touch: Normal, Lower Extremity Light Touch: Abnormal Left Motor strength exam: RUE: 5, LUE: 5, RLE: 4, LLE: 3 Eye Response: (4) open spontaneously Motor Response: (6) obeys commands Verbal Response: (5) oriented Psychiatric exam: Present: normal affect, normal mood Skin exam: Present: normal color Course Vital Signs 07/08/21 07/08/21 07/08/21 18:00 18:07 18:20 Temperature 97.4 F L 97.4 F L Pulse Rate 66 66 84 Respiratory 18 18 18 Rate Blood Pressure 146/83 146/83 135/77 O2 Sat by Pulse 97 97 97 Oximetry 07/08/21 07/08/21 18:45 19:01 Temperature 97.2 F L Pulse Rate 74 76 Respiratory 18 18 Rate Blood Pressure 141/82 133/80 O2 Sat by Pulse 95 95 Oximetry - Reevaluation(s) Reevaluation #1: 07/08/21 18:31 Case was discussed with Dr. Mora who feels patient is a candidate for TPA if computed tomography scan is reported as no acute abnormality. 07/08/21 19:24 Case again discussed with Dr. fierro with some concern for sub-acute left occipital stroke and he recommends no TPA secondary to concern for risk of hemorrhage Patient reevaluated and updated. Case also discussed with Dr. Manzano, who will admit hospital call. EKG Findings - EKG Comments: EKG Findings:: Normal sinus rhythm with a rate of 60. ME 146. QRS 94. QT 4:30. QTC 4:30. Normal axis. Normal QRS. No acute ST change. Medical Decision Making - Lab Data Result diagrams: 07/08/21 18:25 07/08/21 18:25 Lab Results 07/08/21 07/08/21 07/08/21 Range/Units 18:25 18:25 18:25 WBC 10.4 (3.8-10.6) k/uL RBC 4.90 (4.30-5.90) m/uL Hgb 16.7 (13.0-17.5) gm/dL Hct 49.8 (39.0-53.0) % MCV 101.5 H (80.0-100.0) fL MCH 34.0 (25.0-35.0) pg MCHC 33.5 (31.0-37.0) g/dL RDW 14.0 (11.5-15.5) % Plt Count 337 (150-450) k/uL MPV 7.5 Neutrophils % 77 % Lymphocytes % 15 % Monocytes % 5 % Eosinophils % 2 % Basophils % 1 % Neutrophils # 8.0 H (1.3-7.7) k/uL Lymphocytes # 1.6 (1.0-4.8) k/uL Monocytes # 0.5 (0-1.0) k/uL Eosinophils # 0.2 (0-0.7) k/uL Basophils # 0.1 (0-0.2) k/uL Macrocytosis Slight PT 10.2 (9.0-12.0) sec INR 0.9 (<1.2) APTT 20.1 L (22.0-30.0) sec Sodium 138 (137-145) mmol/L Potassium 3.8 (3.5-5.1) mmol/L Chloride 105 (98-107) mmol/L Carbon Dioxide 23 (22-30) mmol/L Anion Gap 10 mmol/L BUN 9 (9-20) mg/dL Creatinine 0.87 (0.66-1.25) mg/dL Est GFR (CKD-EPI)AfAm >90 (>60 ml/min/1.73 sqM) Est GFR (CKD-EPI)NonAf >90 (>60 ml/min/1.73 sqM) Glucose 124 H (74-99) mg/dL POC Glucose (mg/dL) (75-99) mg/dL POC Glu Supervisor [place] ID Calcium 9.3 (8.4-10.2) mg/dL Total Bilirubin 0.4 (0.2-1.3) mg/dL AST 28 (17-59) U/L ALT 30 (4-49) U/L Alkaline Phosphatase 82 (38-126) U/L Troponin I (0.000-0.034) ng/mL Total Protein 6.7 (6.3-8.2) g/dL Albumin 4.1 (3.5-5.0) g/dL 07/08/21 07/08/21 Range/Units 18:25 18:46 WBC (3.8-10.6) k/uL RBC (4.30-5.90) m/uL Hgb (13.0-17.5) gm/dL Hct (39.0-53.0) % MCV (80.0-100.0) fL MCH (25.0-35.0) pg MCHC (31.0-37.0) g/dL RDW (11.5-15.5) % Plt Count (150-450) k/uL MPV Neutrophils % % Lymphocytes % % Monocytes % % Eosinophils % % Basophils % % Neutrophils # (1.3-7.7) k/uL Lymphocytes # (1.0-4.8) k/uL Monocytes # (0-1.0) k/uL Eosinophils # (0-0.7) k/uL Basophils # (0-0.2) k/uL Macrocytosis PT (9.0-12.0) sec INR (<1.2) APTT (22.0-30.0) sec Sodium (137-145) mmol/L Potassium (3.5-5.1) mmol/L Chloride (98-107) mmol/L Carbon Dioxide (22-30) mmol/L Anion Gap mmol/L BUN (9-20) mg/dL Creatinine (0.66-1.25) mg/dL Est GFR (CKD-EPI)AfAm (>60 ml/min/1.73 sqM) Est GFR (CKD-EPI)NonAf (>60 ml/min/1.73 sqM) Glucose (74-99) mg/dL POC Glucose (mg/dL) 114 H (75-99) mg/dL POC Glu Supervisor [place] ID Jaclyn, Cordell Calcium (8.4-10.2) mg/dL Total Bilirubin (0.2-1.3) mg/dL AST (17-59) U/L ALT (4-49) U/L Alkaline Phosphatase (38-126) U/L Troponin I <0.012 (0.000-0.034) ng/mL Total Protein (6.3-8.2) g/dL Albumin (3.5-5.0) g/dL - Radiology Data Radiology results: report reviewed (Computed tomography scan of the brain reveals no acute process per radiology as discussed with Dr. Huang) Disposition Clinical Impression: CVA (cerebral vascular accident) Disposition: ADMITTED IP TO THIS HOSP Is patient prescribed a controlled substance at d/c from ED?: No Referrals: None,Stated [Primary Care Provider] - 1-2 days Decision Time: 19:28
[2021-07-08 18:31] LABS: Basophils # (A) 0.1 k/uL (0-0.2); Basophils % (A) 1 %; Eosinophils # (A) 0.2 k/uL (0-0.7); Eosinophils % (A) 2 %; HCT 49.8 % (39.0-53.0); HGB 16.7 gm/dL (13.0-17.5); Lymphocytes # (A) 1.6 k/uL (1.0-4.8); Lymphocytes % (A) 15 %; MCHC 33.5 g/dL (31.0-37.0); MCV 101.5 fL (80.0-100.0); Macrocytosis Slight; Mean Platelet Volume 7.5; Monocytes # (A) 0.5 k/uL (0-1.0); Monocytes % (A) 5 %; Neutrophils % (A) 77 %; Platelet Count 337 k/uL (150-450); WBC 10.4 k/uL (3.8-10.6)
[2021-07-08 18:45] LABS: ALT 30 U/L (4-49); AST 28 U/L (17-59); African American GFR (CKD) >90 (>60 ml/min/1.73 sqM); Albumin 4.1 g/dL (3.5-5.0); Alkaline Phosphatase 82 U/L (38-126); Anion Gap 10 mmol/L; Blood Urea Nitrogen 9 mg/dL (9-20); Calcium 9.3 mg/dL (8.4-10.2); Carbon Dioxide 23 mmol/L (22-30); Chloride 105 mmol/L (98-107); Glucose 124 mg/dL (74-99); Non-African American GFR(CKD) >90 (>60 ml/min/1.73 sqM); Potassium 3.8 mmol/L (3.5-5.1); Sodium 138 mmol/L (137-145); Total Bilirubin 0.4 mg/dL (0.2-1.3); Total Protein 6.7 g/dL (6.3-8.2)
[2021-07-08 18:47] LABS: Glucose,Whole Blood 114 mg/dL (75-99)
[2021-07-08 18:57] LABS: INR 0.9 (<1.2); Partial Thromboplastin Time 20.1 sec (22.0-30.0); Prothrombin Time 10.2 sec (9.0-12.0)
--- NOTE | 2021-07-08 19:12 | CT ---
EXAMINATION TYPE: CT brain wo con for TPA DATE OF EXAM: 07/08/2021 COMPARISON: 06/24/2021 HISTORY: pssible stroke CT DLP: 1102.8 mGycm Automated exposure control for dose reduction was used. Images obtained of the brain without contrast. Ventricles have normal size. There is no mass effect nor midline shift. There is no sign of intracran ial hemorrhage. There is 3 cm old left cerebellar cortical infarct. There is also some cortical hypod ensity in the left occipital lobe convexity also consistent with old infarct. This measures 2.5 x 1.5 cm. IMPRESSION: Old left cerebellar and left occipital lobe infarcts. No change compared to old exam. No hemorrhage.
[2021-07-08] MEDS ORDERED: ASPIRIN 325 MG TAB PO STA (19:28)
--- NOTE | 2021-07-08 19:52 | XR ---
EXAMINATION TYPE: XR chest 2V DATE OF EXAM: 07/08/2021 COMPARISON: 06/24/2021 HISTORY: Altered mental status TECHNIQUE: 2 view FINDINGS: Heart and mediastinum are normal. Lungs are clear. Diaphragm is normal. Bony thorax appears normal. IMPRESSION: Normal chest. No change.
--- NOTE | 2021-07-08 20:03 | HP ---
HISTORY AND PHYSICAL DATE OF SERVICE: 07/08/2021 CHIEF COMPLAINTS: Dizziness and weakness. HISTORY OF PRESENT ILLNESS: This 55-year-old gentleman with a past medical history of myocardial infarction, history of TIA x3, history of back surgery, DJD, history of nicotine dependence, history of THC, being followed by a primary physician in the [place] area, was visiting family here. The patient was complaining of weakness, mainly on the left side. The patient also had some dizziness. The symptoms started around 4:00 this afternoon, and because of increasing weakness and other symptoms, the patient came to [facility]. STROKE CODE was called and the patient had a CT angio and CT scan of the brain as well. Neurology evaluation also. There is no history of any fever, rigors or chills. No history of headache, loss of consciousness, seizures at this time. PAST MEDICAL HISTORY: History of myocardial infarction, history of multiple TIAs, as mentioned earlier. HOME MEDICATIONS: The list is not available at this time. ALLERGIES: NONE. FAMILY HISTORY: History of cancer in the family. SOCIAL HISTORY: History of smoking about 10 cigarettes. History of THC. REVIEW OF SYSTEMS: ENT: No diminished hearing. No diminished vision. Otherwise as mentioned earlier. CARDIOVASCULAR SYSTEM: No angina, palpitations. RESPIRATORY SYSTEM: No cough, hemoptysis. GI: No nausea, vomiting, diarrhea. : No dysuria. NERVOUS SYSTEM: No numbness, weakness. ALLERGY/IMMUNOLOGY: No asthma or hay fever. MUSCULOSKELETAL: As mentioned earlier. HEMATOLOGY/ONCOLOGY: No history of anemia. ENDOCRINE: No history of diabetes, hypothyroidism. CONSTITUTIONAL: As mentioned earlier. DERMATOLOGY: Negative. RHEUMATOLOGY: Negative. PSYCHIATRY: As mentioned earlier. PHYSICAL EXAMINATION: Patient alert and oriented x3. Pulse 66, blood pressure 146/83, respiration 18, temperature 97.4, pulse ox 97% on room air. HEENT: Conjunctivae normal. NECK: No jugular venous distention. CARDIOVASCULAR: S1, S2 muffled. RESPIRATION: Breath sounds diminished at the bases. A few scattered rhonchi. ABDOMEN: Soft, nontender. LEGS: No edema. No swelling. NERVOUS SYSTEM: Higher functions as mentioned earlier. Moves all 4 limbs. Diffuse weakness on the left side was present . SKIN: No ulcer, rash, bleeding. JOINTS: No active deforming arthropathy. LABS: WBC 10.1, hemoglobin is glucose 124. ASSESSMENT: 1. Possible acute stroke involving the right hemisphere. 2. Weakness. 3. Increased MCV. 4. Increased random blood sugar. 5. History of transient ischemic attacks. 6. History of myocardial infarction. 7. History of back surgery. 8. History of degenerative joint disease. 9. History of nicotine dependence. 10.History of THC. RECOMMENDATIONS AND DISCUSSION: In this 55-year-old gentleman who presented with multiple complex medical issues, we will monitor the patient closely, continue the current medications, continue symptomatic treatment. CT angio, CT scan. STROKE CODE. Neurology consultation. Otherwise, I would also recommend resuming the home medications. Monitor closely. See orders for details. The prognosis is guarded because of multiple complex medical issues. Further recommendations to follow. Also recommend closely following with primary physician and Neurology in the outpatient setting. Full neurovascular workup also will be ordered. OCTAVIO / MIKEL: [id number] / MTDD
[2021-07-08] MEDS: SODIUM CHLORIDE 0.9% 1,000 ML IV SCH (20:41)
[2021-07-08] MEDS: ATORVASTATIN 40 MG TAB PO SCH (20:42)
[2021-07-08] MEDS: HEPARIN SODIUM,PORCINE/PF 5,000 UNIT/0.5 ML SYRINGE SQ SCH (20:42)
[2021-07-08] MEDS ORDERED: HEPARIN SODIUM,PORCINE/PF 5,000 UNIT/0.5 ML SYRINGE SQ SCH (21:00)
--- NOTE | 2021-07-08 21:01 | CT ---
EXAMINATION TYPE: CT angio head neck DATE OF EXAM: 07/08/2021 COMPARISON: 06/24/2021 HISTORY: Weakness CT DLP: mGycm Automated exposure control for dose reduction was used. CONTRAST: The contrast was Isovue 100 mL. There are 3-D post processed images. Images obtained from the aortic arch to the vertex of the brain. There is normal branching pattern of the great vessels on the aortic arch. There is bilateral arteria l flow in the subclavian arteries. There is arterial flow in the common internal and external carotid arteries bilaterally. I see no evidence of any stenosis. There is minimal plaque at the left carotid artery bifurcation. There is arterial flow in the right vertebral artery. I see no sign of flow in t he left vertebral artery. There appears to be retrograde filling of the distal left vertebral artery. There is no evidence of subclavian artery stenosis. There is no evidence of carotid or vertebral artery aneurysm or dissection. There is arterial flow in the anterior middle and posterior cerebral arteries. There is normal contrast opacification of the v enous sinuses. There is no mass effect. I see no sign of intracranial aneurysm or neovascularity. The re is no evidence of intracranial arterial stenosis. IMPRESSION: No flow seen in the left vertebral artery. 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
[2021-07-09] MEDS: SODIUM CHLORIDE 0.9% 1,000 ML IV SCH ×2 (06:00→21:39)
[2021-07-09] MEDS: PANTOPRAZOLE 40 MG TABLET PO SCH (06:17)
[2021-07-09] MEDS: ATORVASTATIN 40 MG TAB PO SCH (07:54)
[2021-07-09] MEDS: HEPARIN SODIUM,PORCINE/PF 5,000 UNIT/0.5 ML SYRINGE SQ SCH ×2 (07:54→20:23)
[2021-07-09] MEDS ORDERED: ASPIRIN 325 MG TAB PO SCH (09:00)
--- NOTE | 2021-07-09 09:36 | P.CNNES ---
History of Present Illness Consult date: 07/09/21 Requesting physician: Kishor Peña Reason for Consult: CVA History of Present Illness: This is a 55-year-old gentleman with medical history of stroke (left occipital stroke), TIAs , chronic neck pain with history of cervical spondylosis s/p surgery (has heather) and was remote with residual numbness of left hand, myocardial infarction, tobacco use who presented emergency department on 07/08/2021 for his acute on chronic dizziness and worsening of left sided-weakness. According to patient he's been having dizziness for last 1-2 months and he stated that the dizziness is that he feels his dizzy and happens when he is rest ing or when he is moving around. It lasts 5-6 minutes at. And it can happen multiple times a day at. He said that he also has nausea associated with that the. But he said that recently his dizziness the he feels like it's getting worse and he had an episode of vomiting. He also has a history of left-sided weakness for last 1-2 months and he felt in the last couple weeks as left-sided weakness has worsened. He denies any ringing in the ears, hearing loss, any diplopia, denies tingling or numbness. Denies and any difficulty swallowing. Currently he denies of any headache. He states that he was here on 06/25/2021 because of dizziness and while he was being worked up by was being treated for COPD and he was he felt like he was getting the wrong management so he left AMA. He has not been taking aspirin and the any Lipitor since nobody gave him the prescription since she left [place]. Also of note patient stated that he smokes 1 pack a day and been going on for years. He drinks socially. He denies any illicit drug use. He stated that he followed up with a neurologist (over at [place]) about 6 months ago and that he had some imaging done and he was told that he had the strokes seen on CT but was notified he had TIA but was not given any antiplatelets or statins rather he was given pain medication according to patient Patient also complained of left-sided headache and he felt sudden onset yesterday in the late afternoon. He denies of any focal weakness. Of note, upon reviewing medical records he presented to the hospital previously for possible TIA and the patient was seen by Dr. Virk on 06/25/2021 and in her note she stated possible TIA with previous strokes and stroke risk factors. And her note she stated the location of the patient's symptoms of left forearm and hand numbness are unusual for TIA and she stated that consider dehydration. Dr. Virk recommended the patient to get MRI of the brain as an outpatient for further motion occipital infarct. To be on aspirin 81mg and on Lipitor for secondary stroke prophylaxis. Other workup in the hospital consisted of: She'll vital signs was blood pressure of 146/83, heart rate of 66, respiratory of 18, temperature of 97.4 Fahrenheit oral and pulse ox of 97% at room air. CT of the head is reported as old left cerebellar and left occipital lobe infarct. No change compared to old exam. No hemorrhage. CT angiography of the head and neck was reported as no flow seen in the left vertebral artery. 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 Chemistry panel is unremarkable. Stroke code was activated and the ED team spoke with stroke attending (Dr. Hardy) and per the ED note it is mentioned that the patient was not a TPA candidate. Was felt the patient has suffered acute left occipital stroke and he recommends no TPA due to concern for risk of hemorrhage. Review of Systems Review of system: The 12 point system was reviewed and apparent positive and negative per HPI. Past Medical History Past Medical History: Cancer, Myocardial Infarction ([place]) Additional Past Medical History / Comment(s): TIA x 3 Last Myocardial Infarction Date:: 2012 History of Any Multi-Drug Resistant Organisms: None Reported Past Surgical History: Back Surgery, Joint Replacement, Orthopedic Surgery Past Anesthesia/Blood Transfusion Reactions: No Reported Reaction Past Psychological History: No Psychological Hx Reported Smoking Status: Current every day smoker Past Alcohol Use History: None Reported Past Drug Use History: Marijuana - Past Family History Mother Family Medical History: Cancer Father Family Medical History: Congestive Heart Failure (CHF) Medications and Allergies Home Medications Medication Instructions Recorded Confirmed Type No Known Home Medications 06/24/21 07/08/21 History Allergies Allergy/AdvReac Type Severity Reaction Status Date / Time No Known Allergies Allergy Verified 07/08/21 20:31 Physical Examination - Vital Signs Vital Signs: Vital Signs Temp Pulse Pulse Resp BP BP Pulse Ox 07/09/21 07:51 98.8 F 65 18 116/74 95 07/09/21 07:43 96 07/09/21 03:25 97.6 F 71 16 122/67 96 07/09/21 00:00 98.0 F 68 16 134/72 98 07/08/21 21:30 98.1 F 79 16 137/69 99 07/08/21 20:49 75 16 130/79 95 07/08/21 19:01 97.2 F L 76 18 133/80 95 07/08/21 18:45 74 18 141/82 95 07/08/21 18:20 84 18 135/77 97 07/08/21 18:07 97.4 F L 66 18 146/83 97 07/08/21 18:00 97.4 F L 66 18 146/83 97 Intake and Output 07/08/21 07/09/21 07/09/21 22:59 06:59 14:59 Intake Total 10 Balance 10 Intake: IV 10 Invasive Line 1 10 Other: Voiding Method Toilet Toilet # Voids 3 Weight 74.843 kg 74.2 kg GENERAL: The patient is lying in bed and is not in acute distress. CHEST: The heart rate is regular rate rhythm. No murmurs to auscultation. No carotid bruit bilaterally. LUNG: Clear to auscultation bilaterally no wheezing noted throughout. Not labored breathing. ABDOMEN/GI: Bowel sounds present in all 4 quadrants. No tenderness to palpation throughout. NEUROLOGICAL: Higher mental function: The patient is awake, alert, oriented to self, place and time. Patient is following commands. No aphasia and no neglect. Cranial nerves: The pupils are round, equal and reactive to light and accommodation. Visual montoya are full to confrontation throughout. Extraocular movement is intact no nystagmus is noted. Facial sensation is normal to touch throughout. The facial strength is normal throughout. Hearing is normal bilaterally to hand rub. Tongue is midline and moved [id number] without any difficulty. No dysarthria is noted. Shoulder shrug is normal bilaterally. Motor: Gait is deferred. The strength is left forearm/hand is 4+ and left knee extension is 4-4+. Otherwise rest are 5 over 5 throughout. Normal tone and b ulk. Cerebellum: Overshoots on left finger to nose and unsteady/ataxic over left heel to wooten. Otherwise normal over the right. Sensation: Sensation is normal to touch throughout. Reflexes (right/left): 2+ throughout. Plantars are downgoing bilaterally. Results - Laboratory Findings CBC and BMP: 07/08/21 18:25 07/08/21 18:25 Abnormal Lab Findings: Abnormal Labs 07/08/21 07/08/21 07/08/21 18:25 18:25 18:25 MCV 101.5 H Neutrophils # 8.0 H APTT 20.1 L Glucose 124 H POC Glucose (mg/dL) 07/08/21 18:46 MCV Neutrophils # APTT Glucose POC Glucose (mg/dL) 114 H Assessment and Plan Assessment: Acute on chronic Vertigo with worsening of his left sided weakness over the past couple weeks. 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 He was seen in early 06/2021 and left AMA) Reported acute left vertebral artery thrombosis (per CTA report) History of TIAs History of cervical spondylosis status post surgery (has heather) with residual numbness over the left hand History of myocardial infarction Nicotine use Plan: In the ED the patient was given aspirin 325 once there was started on 325mg daily I decreased the aspirin from 325 mg to 81 and I added in addition Plavix 75 mg daily. The patient was also started on Lipitor 40 mg daily and increased to 80mg qhs. 2-D echo, lipid panel, are ordered by the ED team is pending I ordered MRI Brain, TSH, hemoglobin A1c. Every 4 hours neuro checks On continuous cardiac monitoring PT OT and SOLAR INSTALLATION TECHNICIAN are consulted Patient is counseled on tobacco cessation We'll defer the rest of the medical management to the primary team. Upon discharge the patient needs to follow-up with a neurologist within 12 weeks as an outpatient. For DVT prophylaxis: On subq heparin. The plan is discussed with the patient's nurse. Thank you for the consultation. Sudhir Ramirez MD Neuro-Hospitalist Time with Patient: Greater than 30
[2021-07-09] MEDS ORDERED: MECLIZINE 12.5 MG TAB PO PRN (09:38)
[2021-07-09 11:10] LABS: Basophils # (A) 0.1 k/uL (0-0.2); Basophils % (A) 1 %; Eosinophils # (A) 0.1 k/uL (0-0.7); Eosinophils % (A) 1 %; HCT 46.9 % (39.0-53.0); HGB 15.8 gm/dL (13.0-17.5); Lymphocytes # (A) 1.5 k/uL (1.0-4.8); Lymphocytes % (A) 18 %; MCH 34.6 pg (25.0-35.0); MCHC 33.6 g/dL (31.0-37.0); MCV 102.8 fL (80.0-100.0); Macrocytosis Slight; Mean Platelet Volume 7.3; Monocytes # (A) 0.5 k/uL (0-1.0); Monocytes % (A) 6 %; Neutrophils % (A) 73 %; Platelet Count 268 k/uL (150-450); RBC 4.56 m/uL (4.30-5.90); RDW 13.5 % (11.5-15.5); WBC 8.3 k/uL (3.8-10.6)
[2021-07-09] MEDS: CLOPIDOGREL 75 MG TAB PO SCH (11:50)
--- NOTE | 2021-07-09 16:43 | ECHOF ---
Referral Reason:Stroke MEASUREMENTS -------- HEIGHT: 180.3 cm WEIGHT: 73.9 kg BP: IVSd: 1.1 cm (0.6 - 1.1) LVIDd: 4.0 cm (3.9 - 5.3) LVPWd: 1.5 cm (0.6 - 1.1) EDV(Teich): 69 ml IVSs: 2.0 cm LVIDs: 2.7 cm LVPWs: 2.1 cm %IVS Thck: 80 % ESV(Teich): 26 ml EF(Teich): 62 % %FS: 33 % SV(Teich): 43 ml RVIDd: 3.1 cm (< 3.3) FINDINGS -------- This was a technically difficult study with suboptimal views. Limited Study The left ventricular size is normal. There is mild concentric left ventricular hypertrophy. Overa ll left ventricular systolic function is normal with, an EF between 55 - 60 %. Lumason used There is no pericardial effusion. CONCLUSIONS -------- 1. The left ventricular size is normal. 2. There is mild concentric left ventricular hypertrophy. 3. Overall left ventricular systolic function is normal with, an EF between 55 - 60 %. 4. There is no pericardial effusion. DIRECTOR WORKERS COMPENSATION: Gisela Keller RD
[2021-07-09 18:42] LABS: Hemoglobin A1C 5.7 % (4.0-6.0)
[2021-07-09] MEDS: ATORVASTATIN 80 MG TAB PO SCH (20:23)
[2021-07-10] MEDS: SODIUM CHLORIDE 0.9% 1,000 ML IV SCH ×3 (02:50→23:24)
[2021-07-10] MEDS: PANTOPRAZOLE 40 MG TABLET PO SCH (06:29)
[2021-07-10 07:07] LABS: Chol/HDL Ratio 4.56; LDL Cholesterol,Calculated 94.6 mg/dL (0.0-131.0); VLDL Calculation 19.4 mg/dL (5.00-40.00)
[2021-07-10] MEDS: ASPIRIN 81 MG PO SCH (08:00)
[2021-07-10] MEDS: CLOPIDOGREL 75 MG TAB PO SCH (08:00)
[2021-07-10] MEDS: HEPARIN SODIUM,PORCINE/PF 5,000 UNIT/0.5 ML SYRINGE SQ SCH ×2 (08:00→20:01)
--- NOTE | 2021-07-10 12:11 | P.PN ---
Subjective Progress Note Date: 07/10/21 The patient is seen at bedside and he stated he noticed diplopia throughout both eyes but when he closes either eyes it resolves. He denies of any new weakness, numbness, difficulty getting his words out or swallowing. He denies of any further dizziness. He has history of DVT and states he has IV filter in past, as has cardiac stents in past. Objective - Vital Signs Vital signs: Vital Signs Temp 98.9 F 07/10/21 11:40 Pulse 63 07/10/21 11:40 Resp 18 07/10/21 11:40 BP 122/69 07/10/21 11:40 Pulse Ox 98 07/10/21 11:40 Intake & Output 07/09/21 07/10/21 07/10/21 18:59 06:59 18:59 Intake Total 240 20 10 Balance 240 20 10 Weight 74.4 kg Intake: IV 20 10 Invasive Line 1 20 10 Oral 240 Other: Voiding Method Toilet # Voids 1 - Exam GENERAL: The patient is lying in bed and is not in acute distress. NEUROLOGICAL: Higher mental function: The patient is awake, alert, oriented to self, place and time. Patient is following commands. No aphasia and no neglect. Cranial nerves: The pupils are round, equal and reactive to light and accommodation. Visual montoya are full to confrontation throughout. He does has diplopia through both eyes but upon closing either eyes resolves. Extraocular movement is intact no nystagmus is noted. Facial sensation is normal to touch throughout. The facial strength is normal throughout. Hearing is normal bilaterally to hand rub. Tongue is midline and moved [id number] without any difficulty. No dysarthria is noted. Shoulder shrug is normal bilaterally. Motor: Gait is deferred. The strength is left forearm/hand is 4+ to 5- and left knee extension is 4+. Otherwise rest are 5 over 5 throughout. Normal tone and bulk. Cerebellum: Minimal overshooting on left finger to nose and unsteady/ataxic over left heel to wooten (better than yesterday). Otherwise normal over the right. Sensation: Sensation is normal to touch throughout. Reflexes (right/left): 2+ throughout. Plantars are downgoing bilaterally. WORK-UP: CT of the head is reported as old left cerebellar and left occipital lobe infarct. No change compared to old exam. No hemorrhage. CT angiography of the head and neck was reported as no flow seen in the left vertebral artery. 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 The echo was reported as technically difficult study with suboptimal views. Mild concentric Lipitor hypertrophy. Ejection fraction 55-60%. Lipid panel is triglyceride of 97.0, cholesterol 146, LDL 94 and HDL of 32. TSH is 0.599 (normal) Hemoglobin A1c is 5.7 (normal) - Labs CBC & Chem 7: 07/09/21 10:34 07/08/21 18:25 Labs: Abnormal Lab Results - Last 24 Hours (Table) 07/09/21 Range/Units 10:34 HDL Cholesterol 32.0 L (40.0-60.0) mg/dL Assessment and Plan Assessment: Acute on chronic Vertigo with worsening of his left sided weakness over the past couple weeks and has diplopia. Rule out acute or subacute ischemia Old left occipital and left cerebellar stroke (patient is not taking antiplatele ts or statins since said no one gave him a script. 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 Continue Lipitor 80mg qhs for secondary stroke prophylaxis. LDL goal <70. Because of history of DVT with IVC filter, not sure if patient needs to be on anticoagulation. Will defer that to the primary team. MRI Brain: pending (pending clearance for IVC filter). If unable possible consider repeat CT head w/o to see if any new acute or subacute stroke that was not picked up on initial one. Every 4 hours neuro checks On continuous cardiac monitoring. PT OT and CATERING DRIVER are consulted Patient is counseled on tobacco cessation We'll defer the rest of the medical management to the primary team. Upon discharge the patient needs to follow-up with a neurologist within 1-2 weeks as an outpatient. For DVT prophylaxis: On subq heparin. The plan is discussed with the patient's nurse. Dr. Alvarez will take over neurological service tomorrow AM. Sudhir Ramirez MD Neuro-Hospitalist Time with Patient: Less than 30
[2021-07-10] MEDS: ATORVASTATIN 80 MG TAB PO SCH (20:01)
[2021-07-10] MEDS: ACETAMINOPHEN TAB 500 MG TAB PO PRN (23:24)
--- NOTE | 2021-07-11 00:43 | P.PN ---
Subjective Progress Note Date: 07/09/21 Principal diagnosis: Stroke Mr. Lowe is a 55-year-old male with a past medical history of left occipital stroke, TIA, chronic neck pain coming to the hospital with acute on chronic worsening left-sided weakness. Patient had CT of the head showing old left cerebellar and left occipital lobe infarct and CT angio of the head and neck showed no flow in the left vertebral artery and left vertebral artery thrombosis no change compared to recent exam. So he is currently being treated for stroke. On 07/09/2021-patient is seen and examined at the bedside. He states that he still has mild dizziness and his left-sided weakness has been stable for the past couple of days. Patient denied having any chest pain or palpitations. No cough or difficulty in breathing. No abdominal pain nausea vomiting or diarrhea. No dysuria or hematuria. On reviewing the patient's vitals temperature of 98.4, respiratory rate 16, blood pressure 113/75, heart rate 63, respiratory rate 16, saturating at 95% on room air. On reviewing the patient's labs white count of 8.3, hemoglobin 15.8, platelets 268. Patient's medications have been reviewed he is on aspirin, Plavix, Lipitor, subcu heparin, Protonix, Antivert. Objective - Vital Signs Vital signs: Vital Signs Temp 98.4 F 07/09/21 11:50 Pulse 63 07/09/21 11:50 Resp 16 07/09/21 11:50 BP 113/75 07/09/21 11:50 Pulse Ox 95 07/09/21 11:50 Intake & Output 07/08/21 07/09/21 07/09/21 18:59 06:59 18:59 Intake Total 10 Balance 10 Weight 74.843 kg 74.2 kg Intake: IV 10 Invasive Line 1 10 Other: Voiding Method Toilet # Voids 3 - Exam PHYSICAL EXAMINATION: GENERAL: Comfortably lying up in the bed appears to be no acute distress. HEENT: Pupils are round and equally reacting to light. EOMI. No scleral icterus. No conjunctival pallor. CARDIOVASCULAR: S1 and S2 present. No murmurs, rubs, or gallops. PULMONARY: Bilateral breath sounds positive. No wheeze or crackles.. ABDOMEN: Soft,non -tender, normal bowel sounds. No guarding or rigidity. MUSCULOSKELETAL: No joint swelling or deformity. EXTREMITIES: No edema NEUROLOGICAL: Left sided weakness SKIN:No rash - Labs CBC & Chem 7: 07/09/21 10:34 07/08/21 18:25 Labs: Abnormal Lab Results - Last 24 Hours (Table) 07/08/21 07/08/21 07/08/21 Range/Units 18:25 18:25 18:25 MCV 101.5 H (80.0-100.0) fL Neutrophils # 8.0 H (1.3-7.7) k/uL APTT 20.1 L (22.0-30.0) sec Glucose 124 H (74-99) mg/dL POC Glucose (mg/dL) (75-99) mg/dL 07/08/21 07/09/21 Range/Units 18:46 10:34 MCV 102.8 H (80.0-100.0) fL Neutrophils # (1.3-7.7) k/uL APTT (22.0-30.0) sec Glucose (74-99) mg/dL POC Glucose (mg/dL) 114 H (75-99) mg/dL Assessment and Plan Assessment: ASSESSMENT Acute stroke History of TIA History of [place] History of back surgery History of degenerative joint disease History of COPD Nicotine dependence History of marijuana use PLAN-patient is currently being worked up for stroke, neurology on board and ordered echocardiogram, TSH, hemoglobin A1c. Continue with every 4 neurochecks. PT OT on board. Patient has been restarted on his home medications. Patient to be continued on aspirin Plavix and statin. Further recommendations to follow depending on the progress of the patient.
--- NOTE | 2021-07-11 00:47 | P.PN ---
Subjective Progress Note Date: 07/10/21 Principal diagnosis: Stroke Mr. Lowe is a 55-year-old male with a past medical history of left occipital stroke, TIA, chronic neck pain coming to the hospital with acute on chronic worsening left-sided weakness. Patient had CT of the head showing old left cerebellar and left occipital lobe infarct and CT angio of the head and neck showed no flow in the left vertebral artery and left vertebral artery thrombosis no change compared to recent exam. So he is currently being treated for stroke. On 07/09/2021-patient is seen and examined at the bedside. He states that he still has mild dizziness and his left-sided weakness has been stable for the past couple of days. Patient denied having any chest pain or palpitations. No cough or difficulty in breathing. No abdominal pain nausea vomiting or diarrhea. No dysuria or hematuria. On reviewing the patient's vitals temperature of 98.4, respiratory rate 16, blood pressure 113/75, heart rate 63, respiratory rate 16, saturating at 95% on room air. On reviewing the patient's labs white count of 8.3, hemoglobin 15.8, platelets 268. On 07/10/2021 -patient is seen and examined at the bedside. He complains of diplopia and left-sided weakness that has been stable. Patient denies having any chest pain or palpitations. He denies having any cough or difficulty breathing. No abdominal pain nausea vomiting or diarrhea. No dysuria or hematuria. On reviewing the patient's vitals temperature of 98.6, heart rate 65, respiratory rate 18, blood pressure 128/75, saturating at 96% on room air. On reviewing the patient's labs from this morning labs - LDL of 94 TSH 0.599. Patient's medications have been reviewed he is on aspirin, Plavix, Lipitor, subcu heparin, Protonix, Antivert. Objective - Vital Signs Vital signs: Vital Signs Temp 98.9 F 07/10/21 11:40 Pulse 63 07/10/21 11:40 Resp 18 07/10/21 11:40 BP 122/69 07/10/21 11:40 Pulse Ox 98 07/10/21 11:40 Intake & Output 07/09/21 07/10/21 07/10/21 18:59 06:59 18:59 Intake Total 240 20 250 Balance 240 20 250 Weight 74.4 kg Intake: IV 20 10 Invasive Line 1 20 10 Oral 240 240 Other: Voiding Method Toilet # Voids 1 - Exam PHYSICAL EXAM GENERAL: Comfortably lying up in the bed appears to be no acute distress. HEENT: Pupils are round and equally reacting to light. EOMI. No scleral icterus. No conjunctival pallor. CARDIOVASCULAR: S1 and S2 present. No murmurs, rubs, or gallops. PULMONARY: Bilateral breath sounds positive. No wheeze or crackles.. ABDOMEN: Soft,non -tender, normal bowel sounds. No guarding or rigidity. MUSCULOSKELETAL: No joint swelling or deformity. EXTREMITIES: No edema NEUROLOGICAL: Left sided weakness SKIN:No rash - Labs CBC & Chem 7: 07/09/21 10:34 07/08/21 18:25 Labs: Abnormal Lab Results - Last 24 Hours (Table) 07/09/21 Range/Units 10:34 HDL Cholesterol 32.0 L (40.0-60.0) mg/dL Assessment and Plan Assessment: ASSESSMENT Acute stroke due to Acute left vertebral artery thrombosis History of TIA History of [place] History of back surgery History of degenerative joint disease History of COPD Nicotine dependence History of marijuana use PLAN-patient is currently being worked up for stroke, neurology on board and ordered echocardiogram, TSH, hemoglobin A1c. Continue with every 4 neurochecks. PT OT on board. MRI has been ordered but the patient has IVC filter in place so unsure if it is MRI compatible or not we will hold off on it until further information is available. Patient has been restarted on his home medications. Patient to be continued on aspirin Plavix and statin. Further recommendations to follow depending on the progress of the patient.
[2021-07-11] MEDS: PANTOPRAZOLE 40 MG TABLET PO SCH (06:34)
[2021-07-11] MEDS: CLOPIDOGREL 75 MG TAB PO SCH (08:35)
[2021-07-11] MEDS: HEPARIN SODIUM,PORCINE/PF 5,000 UNIT/0.5 ML SYRINGE SQ SCH ×2 (08:35→19:44)
[2021-07-11] MEDS: ACETAMINOPHEN TAB 500 MG TAB PO PRN (08:35)
[2021-07-11] MEDS: ASPIRIN 81 MG PO SCH (08:35)
[2021-07-11] MEDS: SODIUM CHLORIDE 0.9% 1,000 ML IV SCH ×2 (08:41→17:41)
--- NOTE | 2021-07-11 14:11 | P.PN ---
Subjective Progress Note Date: 07/11/21 Patient was seen for a follow-up. Patient initially seen by Dr. Sudhir Ramirez. Please refer to his note for details. Patient came with vertigo, left-sided weakness and diplopia. Patient has history of an old CVA. 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 He also has history of DVT. Patient has history of IVC filter placed. Patient currently on aspirin, Plavix and statins. MRI cannot be done because of presence of IVC filter. Patient states his walking is back to normal. He walked in the hallway and feels his gait is back to normal. Denies any focal symptoms. He feels good, no symptoms. No vertigo or spinning. No numbness or tingling, no headache, everything is gone. Still sometimes gets double vision, when he wakes up in the morning or when he is focusing while watching TV. Patient has smoked 1 pack per day since age 11. He denies diabetes or COPD. Objective - Vital Signs Vital signs: Vital Signs Temp 97.9 F 07/11/21 12:00 Pulse 63 07/11/21 12:00 Resp 17 07/11/21 12:00 BP 117/69 07/11/21 12:00 Pulse Ox 95 07/11/21 12:00 Intake & Output 07/10/21 07/11/21 07/11/21 18:59 06:59 18:59 Intake Total 740 236 Output Total 2 2 Balance 738 234 Weight 72.9 kg Intake: IV 20 Invasive Line 1 20 Oral 720 236 Output: Urine 1 1 Stool 1 1 Other: Voiding Method Toilet # Voids 2 1 1 - Exam GENERAL: The patient is lying in bed and is not in acute distress. NEUROLOGICAL: Higher mental function: The patient is awake, alert, oriented to self, place and time. Patient is following commands. No aphasia and no neglect. Cranial nerves: The pupils are round, equal and reactive to light and accommodation. Visual montoya are full to confrontation throughout. He does has diplopia only on waking up or watching TV, much improved. It is not present t hroughout the day. Extraocular movement is intact no nystagmus is noted. Facial sensation is normal to touch throughout. The facial strength is normal throughout. Hearing is normal bilaterally to hand rub. Tongue is midline and moved [id number] without any difficulty. No dysarthria is noted. Shoulder shrug is normal bilaterally. Motor: Gait is deferred. Muscle strength is normal in arms and legs distally and proximally.. Normal tone and bulk. Cerebellum: No ataxia for [id number] testing on either side. Very minimal ataxia for nxzy-ne-[id number] on the left. Sensation: Sensation is normal to touch throughout. Reflexes (right/left): 2+ throughout. Plantars are downgoing bilaterally. - Labs CBC & Chem 7: 07/09/21 10:34 07/08/21 18:25 Assessment and Plan Assessment: Acute on chronic Vertigo with worsening of his left sided weakness over the past couple weeks and has diplopia. 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 Continue Lipitor 80mg qhs for secondary stroke prophylaxis. LDL goal <70. Because of history of DVT with IVC filter, not sure if patient needs to be on anticoagulation. Will defer that to the primary team. MRI Brain: pending (pending clearance for IVC filter). If unable possible consider repeat CT head w/o to see if any new acute or subacute stroke that was not picked up on initial one. Telemetry monitoring showing sinus rhythm with sinus bradycardia. No other arrhythmia. PT OT and CONSTRUCTION MANAGEMENT ASSISTANT are consulted Patient is counseled on tobacco cessation. Patient has smoked 1 pack per day since age 11, for last 44 years. We'll defer the rest of the medical management to the primary team. Upon discharge the patient needs to follow-up with a neurologist within 1-2 weeks as an outpatient. For DVT prophylaxis: On subq heparin. WORK-UP: CT of the head is reported as old left cerebellar and left occipital lobe infarct. No change compared to old exam. No hemorrhage. CT angiography of the head and neck was reported as no flow seen in the left vertebral artery. 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 The echo was reported as technically difficult study with suboptimal views. Mild concentric Lipitor hypertrophy. Ejection fraction 55-60%. May consider KELVIN, if recommended by cardiology. Lipid panel is triglyceride of 97.0, cholesterol 146, LDL 94 and HDL of 32. TSH is 0.599 (normal) Hemoglobin A1c is 5.7 (normal)
[2021-07-11 15:33] LABS: Glucose,Whole Blood 136 mg/dL (75-99)
[2021-07-11] MEDS ORDERED: ONDANSETRON 4 MG/2 ML VIAL ONE (16:10)
--- NOTE | 2021-07-11 16:17 | CT ---
EXAMINATION TYPE: CODE STROKE: CT brain wo contr DATE OF EXAM: 07/11/2021 COMPARISON: 07/08/2021 and 06/24/2021. HISTORY: 55-year-old male Vertigo, weakness. TECHNIQUE: Examination was done in axial plane without intravenous contrast. Coronal and sagittal r econstructions performed. CT DLP: 1122.8 mGycm Automated exposure control for dose reduction was used. FINDINGS: Redemonstrated prior encephalomalacia left cerebral hemisphere but now with new extensive hypodensity posterior inferior left cerebellar hemisphere compatible with evolving acute infarct. There is crowd ing of the left posterior cranial fossa. No tonsillar herniation or effacement of the fourth ventricl e. Focal hypodensity left occipital lobe remains similar compared to 06/24/2021. There is no evidence of acute intracranial hemorrhage, mass, or extra-axial fluid collection. There is no hydrocephalus. There is no midline shift. Stock-white matter distinction is preserved. Leftward nasal septal deviation. Frothy air-fluid level left maxillary sinus. Mastoid air cells well pneumatized. Orbits and globes are intact. IMPRESSION: 1. Evolving acute infarct left PICA territory on top of an area of old encephalomalacia seen on 021. The degree of hypodensity suggests greater than 6 hours in duration. Associated mass effect caus ing fullness of the left posterior cranial fossa. No cerebellar tonsillar herniation or effacement of the fourth ventricle at this time. 2. Left occipital lobe cortical infarct has a similar appearance to 06/24/2021 suggesting an area of ol d vascular injury. Consider MRI if clinically indicated.
[2021-07-11] MEDS ORDERED: ONDANSETRON 4 MG/2 ML VIAL IVP PRN (16:19)
[2021-07-11 16:26] LABS: Basophils % (A) 1 %; Eosinophils # (A) 0.2 k/uL (0-0.7); Eosinophils % (A) 2 %; HCT 47.4 % (39.0-53.0); HGB 15.9 gm/dL (13.0-17.5); Lymphocytes # (A) 2.1 k/uL (1.0-4.8); Lymphocytes % (A) 30 %; MCH 33.8 pg (25.0-35.0); MCHC 33.5 g/dL (31.0-37.0); MCV 100.8 fL (80.0-100.0); Macrocytosis Slight; Mean Platelet Volume 7.6; Monocytes # (A) 0.7 k/uL (0-1.0); Monocytes % (A) 10 %; Neutrophils # (A) 3.8 k/uL (1.3-7.7); Neutrophils % (A) 54 %; Platelet Count 336 k/uL (150-450); RBC 4.71 m/uL (4.30-5.90); RDW 13.9 % (11.5-15.5)
[2021-07-11] MEDS ORDERED: HYDROmorphone 0.5 MG/0.5 ML SYRINGE IVP PRN (16:39)
[2021-07-11 16:40] LABS: Partial Thromboplastin Time 23.1 sec (22.0-30.0); Prothrombin Time 10.4 sec (9.0-12.0)
[2021-07-11] MEDS ORDERED: HYDROmorphone 1 MG/ML 1 ML SYRINGE ONE (16:41)
[2021-07-11 16:52] LABS: ALT 24 U/L (4-49); AST 27 U/L (17-59); African American GFR (CKD) >90 (>60 ml/min/1.73 sqM); Albumin 3.5 g/dL (3.5-5.0); Alkaline Phosphatase 73 U/L (38-126); Anion Gap 7 mmol/L; Blood Urea Nitrogen 10 mg/dL (9-20); Calcium 8.8 mg/dL (8.4-10.2); Carbon Dioxide 23 mmol/L (22-30); Chloride 107 mmol/L (98-107); Glucose 115 mg/dL (74-99); Non-African American GFR(CKD) >90 (>60 ml/min/1.73 sqM); Sodium 137 mmol/L (137-145); Total Bilirubin 0.3 mg/dL (0.2-1.3); Total Protein 6.1 g/dL (6.3-8.2)
--- NOTE | 2021-07-11 17:05 | CT ---
EXAMINATION TYPE: CODE STROKE: CTA head neck DATE OF EXAM: 07/11/2021 COMPARISON: CT brain same day HISTORY: 55-year-old male Vertigo, weakness. TECHNIQUE: Contiguous axial scanning of the head and neck performed with IV Contrast, patient injecte d with 65 mL of Isovue 370. Coronal/sagittal MIP reconstructions performed. 3-D reconstructions gener ated on a dedicated independent workstation. CT DLP: 426.8 mGycm Automated exposure control for dose reduction was used. FINDINGS: Neck: Emphysematous cysts in the upper lungs. Conventional arch vessel branching anatomy. There has been interval recanalization of the left vertebral artery. Irregular internal filling defec t remains within the V1 and V2 segment of the left vertebral artery. Right vertebral artery is patent. The right common and right internal carotid arteries are patent. The left common carotid artery is patent. Mild atherosclerotic change at the left carotid bifurcation. Left internal carotid artery is patent. Head: The vertebral and basilar arteries are patent. The origin of the left posterior inferior cerebellar artery is seen but the vessel fades out along it s proximal portion. Otherwise, the remainder of the posterior circulation is patent. The internal carotid arteries and the remainder of the anterior circulation are patent. Possible 4 mm saccular aneurysm right anterior communicating artery, thin cut axial image 49, coronal image 8 to b e reassessed at follow-up. Hypoplastic A1 segment left anterior cerebral artery. Anterior circulation otherwise patent. Vessels are seen opacifying near the midline along the posterior cranial fossa. Subtle 2 to 3 mm of r ightward midline shift is difficult to exclude, series 410, image 50. IMPRESSION: 1. KNOWN LEFT POSTERIOR CEREBELLAR ACUTE INFARCT. DIFFICULT TO EXCLUDE SUBTLE 2 TO 3 MM OF RIGHTWARD MIDLINE SHIFT (AXIAL SERIES 410 IMAGE 50). 2. INTERVAL RECANALIZATION OF THE LEFT VERTEBRAL ARTERY BUT WITH SOME IRREGULAR INTERNAL FILLING DEFE CT/CLOT REMAINING THROUGHOUT THE V1 AND V2 SEGMENTS. 3. OCCLUSION OR SUBTOTAL OCCLUSION PROXIMAL LEFT POSTERIOR INFERIOR CEREBELLAR ARTERY. 4. NO COMMON OR INTERNAL CAROTID ARTERY STENOSIS. 5. POSSIBLE 4 MM SACCULAR ANEURYSM VERSUS VESSEL TORTUOSITY RIGHT ANTERIOR COMMUNICATING ARTERY. SIX- MONTH FOLLOW-UP CTA OR MRA RECOMMENDED TO REASSESS. Findings discussed over the phone with Dr. Alvarez at 4:55 PM.
[2021-07-11] MEDS ORDERED: SODIUM CHLORIDE 0.9% 1,000 ML IV SCH (17:45)
[2021-07-11 20:02] VITALS: BP 130/68; PULSE 61; RESP 18; TEMP 97.6
[2021-07-11] MEDS: ATORVASTATIN 80 MG TAB PO SCH (20:02)
--- NOTE | 2021-07-12 10:19 | P.PN ---
Progress Note - Text Progress Note Date: 07/11/21 Patient at around 3:30 PM developed acute onset of dizziness, vertigo, nausea vomiting, slurred speech, diplopia with cranial nerve palsy. Also developed acute onset of headache. Stroke code was activated. I came to see patient right away. Patient appeared to be profusely sweating, diaphoretic, mumbling speech, has obvious extraocular muscles weakness, with gaze palsy to the either side (perhaps right more than left). Patient was weak in bilateral arms, right more than left. Patient's blood pressure was 155/70, pulse rate 46, respirations 17, blood glucose was reportedly normal. It appeared his NIH stroke scale was quite high, which the nurse reported related to decreased mentation and inability to follow commands. Patient's symptoms were highly concerning for basilar artery thrombosis. Patient was sent for stat computed tomography scan and CTA of head and neck. When the patient returned back from computed tomography scan department, he was much improved. NIH stroke scale has dropped down to 3. This included right facial droop, left arm ataxia and left pronator drift. Subsequently the facial asymmetry was resolved. He continues to have headache. Computed tomography scan of the head showed evolving acute infarct left pica territory on top of an area of old encephalomalacia seen on 06/24/2021. The degree of hypodensity suggests greater than 6 hours in duration. Associated mass effect causing fullness of left posterior cranial fossa. No cerebellar tonsillar herniation or effacement of the fourth ventricle at this time. Left occipital lobe cortical infarct has a similar appearance to 06/24/2021, assisting an area of old vascular injury. Consider MRI if clinically indicated. CTA of head and neck showed known left posterior cerebellar acute infarct. Difficult to exclude subtle 2-3 mm of rightward midline shift. Interval recanalization of the left vertebral artery but with some irregular internal filling defect/clot remaining throughout the V1 and V2 segments. Occlusion or subtotal occlusion proximal left posterior inferior cerebellar artery. No common or internal carotid artery stenosis. Possible 4 mm saccular aneurysm versus vessel tortuosity right anterior communicating artery. 6 months follow- up CTA or MRA recommended to reassess. I discussed case with , who is a stroke neurologist litigation partner today. It was immediately decided for patient to be transferred to [facility] for close neurological monitoring, neurosurgical evaluation, in case patient would need decompressive craniotomy for worsening cerebellar edema. Patient agreed for transfer to higher level of care. Discuss with primary physician. Patient's neurological status is much improved. His NIH stroke scale was down to 2 before patient was transferred to [facility]. Spent greater than 30 minutes in acute neurological care of this patient.
== END 2021-07-11 22:25 | disposition short-term general hospital, planned readmission (82) | DRG 64 ==
LOC: EC 17:55 → 3SCARD 19:28
PROVIDERS: ADMIT Hospitalist; ATTEND Hospitalist
DX: I63.012 Cerebral infarction due to thrombosis of left vertebral artery (principal); I63.542 Cerebral infarction due to unspecified occlusion or stenosis of left cerebellar artery; G93.6 Cerebral edema; G93.5 Compression of brain; F17.210 Nicotine dependence, cigarettes, uncomplicated; G52.9 Cranial nerve disorder, unspecified; I25.2 Old myocardial infarction; R11.2 Nausea with vomiting, unspecified; J44.9 Chronic obstructive pulmonary disease, unspecified; R47.81 Slurred speech; R00.1 Bradycardia, unspecified; R27.0 Ataxia, unspecified; R29.703 NIHSS score 3; R29.810 Facial weakness; H53.2 Diplopia; F12.90 Cannabis use, unspecified, uncomplicated; M47.812 Spondylosis without myelopathy or radiculopathy, cervical region; R20.0 Anesthesia of skin; R42 Dizziness and giddiness; Z86.718 Personal history of other venous thrombosis and embolism; Z79.82 Long term (current) use of aspirin; Z86.73 Personal history of transient ischemic attack (TIA), and cerebral infarction without residual deficits; Z20.822 Contact with and (suspected) exposure to COVID-19; Z95.5 Presence of coronary angioplasty implant and graft; Z95.828 Presence of other vascular implants and grafts; Z71.6 Tobacco abuse counseling
CPT/HCPCS: 36415; 70450; 70496; 70498; 71046; 80053; 80061; 83036; 84443; 84484; 85025; 85610; 85730; 93005; 93308; 94760

== ENCOUNTER 2022-06-14 13:06 | Emergency (ER) | payer OTHER ==
[2022-06-14 13:13] VITALS: BP 118/73; PULSE 61; RESP 18; TEMP 98.1
[2022-06-14 13:56] LABS: HCT 48.3 % (39.0-53.0); HGB 15.7 gm/dL (13.0-17.5); MCH 31.6 pg (25.0-35.0); MCHC 32.5 g/dL (31.0-37.0); MCV 97.2 fL (80.0-100.0); Mean Platelet Volume 7.3; Platelet Count 318 k/uL (150-450); RBC 4.96 m/uL (4.30-5.90); RDW 12.5 % (11.5-15.5); WBC 7.5 k/uL (3.8-10.6)
[2022-06-14 14:28] LABS: ALT 21 U/L (4-49); AST 22 U/L (17-59); African American GFR (CKD) >90 (>60 ml/min/1.73 sqM); Albumin 4.4 g/dL (3.5-5.0); Alkaline Phosphatase 65 U/L (38-126); Anion Gap 7 mmol/L; Blood Urea Nitrogen 12 mg/dL (9-20); Calcium 9.4 mg/dL (8.4-10.2); Carbon Dioxide 32 mmol/L (22-30); Chloride 102 mmol/L (98-107); Glucose 108 mg/dL (74-99); Non-African American GFR(CKD) >90 (>60 ml/min/1.73 sqM); Potassium 4.9 mmol/L (3.5-5.1); Sodium 141 mmol/L (137-145); Total Bilirubin 0.5 mg/dL (0.2-1.3); Total Protein 6.9 g/dL (6.3-8.2)
--- NOTE | 2022-06-14 15:38 | ED ---
Recheck HPI - General Chief Complaint: Recheck/Abnormal Lab/Rx Stated Complaint: Abd labs Time Seen by Provider: 06/14/22 14:50 Source: patient Mode of arrival: ambulatory Limitations: no limitations - History of Present Illness Initial Comments: Patient is a 56-year-old male presenting for evaluation of elevated potassium. Patient states he had labs drawn yesterday, today his doctor called him to and from the his potassium was high and he should seek medical treatment at the ER. Patient is asymptomatic at this time he has no complaints. Denies chest pain, shortness of breath, fever, chills, nausea, vomiting, abdominal pain, diarrhea, hematochezia, melena, palpitations, weakness, vision or hearing changes. - Related Data Home Medications Medication Instructions Recorded Confirmed No Known Home Medications 06/24/21 07/08/21 Allergies Allergy/AdvReac Type Severity Reaction Status Date / Time No Known Allergies Allergy Verified 06/14/22 13:13 Review of Systems ROS Statement: Those systems with pertinent positive or pertinent negative responses have been documented in the HPI. ROS Other: All systems not noted in ROS Statement are negative. Past Medical History Past Medical History: Cancer, Myocardial Infarction (HI) Additional Past Medical History / Comment(s): TIA x 3 Last Myocardial Infarction Date:: 2012 History of Any Multi-Drug Resistant Organisms: None Reported Past Surgical History: Back Surgery, Joint Replacement, Orthopedic Surgery Past Anesthesia/Blood Transfusion Reactions: No Reported Reaction Past Psychological History: No Psychological Hx Reported Smoking Status: Current every day smoker Past Alcohol Use History: None Reported Past Drug Use History: Marijuana - Past Family History Mother Family Medical History: Cancer Father Family Medical History: Congestive Heart Failure (CHF) General Exam Limitations: no limitations General appearance: alert, in no apparent distress Head exam: Present: atraumatic, normocephalic, normal inspection Eye exam: Present: normal appearance, EOMI. Absent: scleral icterus, periorbital swelling Neck exam: Present: normal inspection Respiratory exam: Present: normal lung sounds bilaterally. Absent: respiratory distress, wheezes, rales, rhonchi, stridor Cardiovascular Exam: Present: regular rate, normal rhythm, normal heart sounds. Absent: systolic murmur, diastolic murmur, rubs, gallop, clicks Extremities exam: Present: normal inspection, full ROM Neurological exam: Present: alert, oriented X3, CN II-XII intact Psychiatric exam: Present: normal affect, normal mood Skin exam: Present: warm, dry, intact, normal color. Absent: rash Course Vital Signs 06/14/22 13:10 Temperature 98.1 F Pulse Rate 61 Respiratory 18 Rate Blood Pressure 118/73 O2 Sat by Pulse 99 Oximetry Medical Decision Making - Medical Decision Making Patient is a 56-year-old male presenting for evaluation of elevated potassium. Patient was informed by his physician today that his potassium was high and his recent labs drawn to report to the ER. Patient is asymptomatic at this time. Labs drawn in the ER show potassium of 4.9. Patient is instructed to follow-up with PCP in one to 2 days. Report back to ER with any new or worsening symptoms. Discussed return parameters answered all questions. Patient conveyed verbal understanding and agreed to the plan. My attending is Dr. Kaplan. - Lab Data Result diagrams: 06/14/22 13:28 06/14/22 13:28 Lab Results 06/14/22 06/14/22 Range/Units 13:28 13:28 WBC 7.5 (3.8-10.6) k/uL RBC 4.96 (4.30-5.90) m/uL Hgb 15.7 (13.0-17.5) gm/dL Hct 48.3 (39.0-53.0) % MCV 97.2 (80.0-100.0) fL MCH 31.6 (25.0-35.0) pg MCHC 32.5 (31.0-37.0) g/dL RDW 12.5 (11.5-15.5) % Plt Count 318 (150-450) k/uL MPV 7.3 Sodium 141 (137-145) mmol/L Potassium 4.9 (3.5-5.1) mmol/L Chloride 102 (98-107) mmol/L Carbon Dioxide 32 H (22-30) mmol/L Anion Gap 7 mmol/L BUN 12 (9-20) mg/dL Creatinine 0.86 (0.66-1.25) mg/dL Est GFR (CKD-EPI)AfAm >90 (>60 ml/min/1.73 sqM) Est GFR (CKD-EPI)NonAf >90 (>60 ml/min/1.73 sqM) Glucose 108 H (74-99) mg/dL Calcium 9.4 (8.4-10.2) mg/dL Total Bilirubin 0.5 (0.2-1.3) mg/dL AST 22 (17-59) U/L ALT 21 (4-49) U/L Alkaline Phosphatase 65 (38-126) U/L Total Protein 6.9 (6.3-8.2) g/dL Albumin 4.4 (3.5-5.0) g/dL Disposition Clinical Impression: Abnormal laboratory test result Disposition: HOME SELF-CARE Condition: Good Instructions (If sedation given, give patient instructions): Hyperkalemia (ED) Additional Instructions: Follow-up with PCP in one to 2 days. Report back to ER with any new or worsening symptoms. Is patient prescribed a controlled substance at d/c from ED?: No Referrals: [facility],Clinic [Primary Care Provider] - 1-2 days Time of Disposition: 15:38
== END 2022-06-14 15:40 | disposition home or self-care (01) ==
LOC: EC 13:06
DX: R79.9 Abnormal finding of blood chemistry, unspecified (principal); I25.2 Old myocardial infarction; F17.200 Nicotine dependence, unspecified, uncomplicated; F12.90 Cannabis use, unspecified, uncomplicated
CPT/HCPCS: 36415; 80053; 85027; 93005; 99284

== ENCOUNTER → 2022-08-09 | Outpatient (CLI) | payer MEDICARE, OTHER ==
[2022-08-09 18:23] LABS: Blood Urea Nitrogen 11.8 mg/dL (9.0-27.0); Non-African American GFR(CKD) 86.3 (60.0-200.0)
== END | disposition home or self-care (01) ==
LOC: LABWHC1 12:46
PROVIDERS: ATTEND Otolaryngology Otolaryngology/Facial Plastic Surgery
DX: R42 Dizziness and giddiness (principal)
CPT/HCPCS: 36415; 82565; 84520

== ENCOUNTER 2022-10-10 06:32 | Day surgery (SDC) | payer MEDICARE, OTHER ==
[2022-10-10] MEDS ORDERED: SODIUM CHLORIDE 0.9% 500 ML 500 ML IV ONE (06:53)
[2022-10-10 07:00] VITALS: RESP 16; TEMP 97.9
[2022-10-10] MEDS ORDERED: fentaNYL (PF) 50 MCG/ML 2 ML AMP ONE (07:13)
[2022-10-10] MEDS ORDERED: BENZOCAINE SPRAY 1 CAN MUCOUS MEM ONE ×2 (07:21→07:37)
[2022-10-10] MEDS ORDERED: MIDAZOLAM 2 MG/2 ML VIAL IV ONE (07:38)
[2022-10-10] MEDS ORDERED: fentaNYL (PF) 50 MCG/ML 2 ML AMP IVP ONE (07:39)
[2022-10-10] MEDS ORDERED: MIDAZOLAM 2 MG/2 ML VIAL IVP ONE (07:41)
--- NOTE | 2022-10-10 08:45 | ECHOT ---
TRANSESOPHAGEAL ECHOCARDIOGRAM PERFORMING PHYSICIAN: Alberto Burton MD PROCEDURE PERFORMED: Transesophageal echocardiogram. INDICATIONS: CVA, rule out PFO. COMPLICATIONS: LEVEL OF SEDATION: PROCEDURE DESCRIPTION: After obtaining informed consent, transesophageal echocardiogram was performed in left lateral position using an Omniplane probe. Local and IV sedation were obtained using Xylocaine spray, 2 mg of Versed, and 25 mcg of fentanyl. The patient tolerated the procedure well without any obvious immediate complications. FINDINGS: 1. There is no intracardiac thrombus within the left atrial appendage, left atrium, right atrium, right ventricle, or left ventricle. 2. Left ventricle has normal size and systolic function. 3. Interatrial septum: There is no evidence of qfvo-kq-zktas shunt by color-flow Doppler or [id number]-ey-[id number] shunt by agitated saline contrast study. 4. There is mild mitral regurgitation noted. 5. Aortic valve is free of stenosis or regurgitation. 6. There is mild tricuspid regurgitation noted. Aorta is free of aneurysm, dissection, or significant atherosclerosis. CONCLUSION: No obvious cardiac source for thromboembolic CVA. MMODL / IJN: [id number] /
[2022-10-10 08:49] VITALS: BP 105/62; PULSE 50
== END 2022-10-10 09:16 | disposition home or self-care (01) ==
LOC: CATHCVL 06:32
PROVIDERS: ATTEND Internal Medicine Cardiovascular Disease
DX: I08.1 Rheumatic disorders of both mitral and tricuspid valves (principal); I67.89 Other cerebrovascular disease; E78.5 Hyperlipidemia, unspecified; I82.529 Chronic embolism and thrombosis of unspecified iliac vein; M12.9 Arthropathy, unspecified; F17.200 Nicotine dependence, unspecified, uncomplicated; F12.90 Cannabis use, unspecified, uncomplicated; Z79.01 Long term (current) use of anticoagulants; Z80.9 Family history of malignant neoplasm, unspecified
CPT/HCPCS: 93312; 93320; 93325; J2250; J3010

== ENCOUNTER → 2023-08-07 | Outpatient (CLI) | payer OTHER ==
--- NOTE | 2023-08-08 11:15 | US ---
EXAMINATION TYPE: US thyroid st tissue head/neck DATE OF EXAM: 08/07/2023 COMPARISON: NONE CLINICAL INDICATION: Male, 57 years old with history of R94.6 ABNORMAL RESULTS OF THYROID FUNCTION ST UDIES; Abnormal labs. Not on thyroid meds. GLAND SIZE: Right Lobe: 4.4 x 1.5 x 2.0 cm Overall Parenchyma: homogenous Left Lobe: 3.2 x 1.6 x 2.4 cm Overall Parenchyma: homogeneous Isthmus Thickness: 0.4 cm NODULES RIGHT: # of nodules measured on right: 0 LEFT: # of nodules measured on left: 0 ISTHMUS: # of nodules measured in the isthmus: 0 Bilateral neck scanned, no evidence of lymphadenopathy. IMPRESSION: 1. No suspicious thyroid nodules.
== END | disposition home or self-care (01) ==
LOC: RADUSWWP 16:16
PROVIDERS: ATTEND Family Medicine
DX: R94.6 Abnormal results of thyroid function studies (principal); R79.9 Abnormal finding of blood chemistry, unspecified
CPT/HCPCS: 76536